=== PATIENT | male | born 1960 | race Caucasian/White ===

== ENCOUNTER → 2018-02-21 | Day surgery (SDC) | payer MEDICARE, MEDICAID ==
[~2018-02-21] MED LIST: ASPI-1159 PO; ATOR40TA70 PO; CARV6.2548 PO; CLOP75TA33 PO; FURO40TA5 PO; GLIM4TAB2 PO; LIDOCAINE HCL/PF 1% 10 MG/ML 5ML VIAL ONE; LINA5TAB PO; POTA10TA15 PO; SACU1TAB7 PO; SILV20CR13 TP
== END | disposition home or self-care (01) ==
LOC: RADANGIO 08:33
PROVIDERS: ATTEND Podiatrist Foot & Ankle Surgery
DX: M89.8X7 Other specified disorders of bone, ankle and foot (principal); I11.0 Hypertensive heart disease with heart failure; I50.9 Heart failure, unspecified; E11.9 Type 2 diabetes mellitus without complications; E78.5 Hyperlipidemia, unspecified; E44.0 Moderate protein-calorie malnutrition; Z79.4 Long term (current) use of insulin; Z95.1 Presence of aortocoronary bypass graft; Z95.810 Presence of automatic (implantable) cardiac defibrillator; Z86.73 Personal history of transient ischemic attack (TIA), and cerebral infarction without residual deficits; Z79.82 Long term (current) use of aspirin; Z79.899 Other long term (current) drug therapy
CPT/HCPCS: 36569; 76937; 77001; C1725; J3490

== ENCOUNTER 2018-05-28 12:26 | Emergency (ER) | payer MEDICARE, MEDICAID ==
[~2018-05-28] VITALS: Ht 182.9 cm; Wt 127.0 kg
[~2018-05-28 12:26] MED LIST changes: -LIDOCAINE HCL/PF 1% 10 MG/ML 5ML VIAL ONE
[2018-05-28 13:14] VITALS: BP 118/78
== END 2018-05-28 15:52 | disposition left against medical advice (07) ==
LOC: ER 12:26
DX: M79.671 Pain in right foot (principal); Z53.21 Procedure and treatment not carried out due to patient leaving prior to being seen by health care provider

== ENCOUNTER 2018-07-18 13:23 | Inpatient (IN) | payer MEDICARE, MEDICAID ==
[~2018-07-18] VITALS: Ht 182.9 cm; Wt 119.8 kg
[2018-07-18] MEDS ORDERED: PIPERACILLIN/TAZOBACTAM 3.375GM/50ML PREMIX IV ONE (18:45)
[2018-07-18] MEDS ORDERED: PIPERACILLIN/TAZ 3.375G PREMIX 50 ML IV NR (18:45)
[2018-07-18] MEDS ORDERED: VANCOMYCIN 1 G PREMIX 200 ML IV SCH (18:45)
[2018-07-18] MEDS ORDERED: MORPHINE SULFATE 4 MG/ML CPJ (NOT FOR IM USE) IV PRN (19:30)
[2018-07-18] MEDS ORDERED: LORAZEPAM 0.5MG TABLET PO PRN (19:30)
[2018-07-18] MEDS ORDERED: MAGNESIUM/ALUMINUM HYDROXIDE/SIMETHICONE 30ML UDC PO PRN (19:30)
[2018-07-18] MEDS ORDERED: DEXTROSE 50% WATER 50ML SYRINGE IV PRN (19:30)
[2018-07-18] MEDS ORDERED: DIPHENHYDRAMINE 50MG/ML VIAL IV PRN (19:30)
[2018-07-18] MEDS ORDERED: ONDANSETRON HCL 4MG/2ML INJ IV PRN (19:30)
[2018-07-18] MEDS ORDERED: CLONIDINE 0.1MG TABLET PO PRN (19:30)
[2018-07-18] MEDS ORDERED: ACETAMINOPHEN 325MG TABLET PO PRN (19:30)
[2018-07-18] MEDS ORDERED: HYDROCODONE/ACETAMINOPHEN 5/325MG TABLET PO PRN (19:30)
[2018-07-18] MEDS ORDERED: ACETAMINOPHEN 650MG SUPP PR PRN (19:30)
[2018-07-18] MEDS ORDERED: DOCUSATE SODIUM 100MG CAPSULE PO PRN (19:30)
[2018-07-18] MEDS ORDERED: IPRATROPIUM/ALBUTEROL 0.5-3(2.5)MG/3ML NEB INH PRN (19:30)
[2018-07-18] MEDS ORDERED: GUAIFENESIN 200MG/10ML SUGAR FREE UDC PO PRN (19:30)
[2018-07-18 19:36] LABS: BASOPHILS % 0.5 % (0.0-2.0); EOSINOPHILS % 0.8 % (0.0-5.0); HEMATOCRIT. 42.8 % (42.0-52.0); HEMOGLOBIN. 14.2 g/dL (14.0-18.0); LYMPHOCYTES % 13.1 % (20.0-50.0); MEAN CORPUSCULAR HEMOGLOBIN 29.9 pg (28.0-32.0); MEAN PLATELET VOLUME 9.4 fl (7.4-10.4); MONOCYTES % 10.8 % (2.0-8.0); NEUTROPHILS % 74.8 % (40.0-76.0); PLATELET 213 x1000/uL (130-400); RED BLOOD CELL COUNT 4.75 mill/uL (4.7-6.1); RED CELL DISTRIBUTION WIDTH 14.4 % (11.6-14.6)
[2018-07-18 19:41] LABS: CHLORIDE 100 mEq/L (98-107); INR 1.3; PROTHROMBIN TIME 12.6 sec (9.1-11.1)
[2018-07-18 22:04] LABS: CHLORIDE 101 mEq/L (98-107)
[2018-07-18] MEDS ORDERED: NA PHOS,M-B/NA PHOS,DI-BA ENEMA 118ML PR PRN (23:56)
[2018-07-19] VITALS (12 sets, daily range): BP systolic 101–140; BP diastolic 59–81
[2018-07-19] MEDS: PIPERACILLIN/TAZ 3.375G PREMIX 50 ML IV SCH ×4 (01:56→20:36)
[2018-07-19] MEDS ORDERED: VANCOMYCIN 1500MG in DEXTROSE 5% WATER 250ML IV SCH (03:00)
[2018-07-19 05:36] LABS: CLARITY URINE CLEAR (CLEAR); COLOR URINE DARK YELLOW (YELLOW); KETONES URINE 1+ (NEGATIVE); LEUKOCYTE ESTERASE URINE TRACE (NEGATIVE); NITRITE URINE NEGATIVE (NEGATIVE); OCCULT BLOOD URINE NEGATIVE (NEGATIVE); PROTEIN URINE 1+ (NEGATIVE)
[2018-07-19] MEDS: BLOOD SUGAR DIAGNOSTIC STRIP TEST SCH ×5 (06:09→20:41)
[2018-07-19 06:11] LABS: *AMPHETAMINES SCREEN URINE NEGATIVE (NEGATIVE); *BARBITURATES SCREEN URINE NEGATIVE (NEGATIVE); *BENZODIAZEPINES SCREEN URINE NEGATIVE (NEGATIVE)
[2018-07-19 06:12] LABS: *COCAINE SCREEN URINE NEGATIVE (NEGATIVE); CANNABINOID URINE SCREEN NEGATIVE (NEGATIVE); METHADONE URINE SCREEN NEGATIVE (NEGATIVE); OPIATES URINE SCREEN NEGATIVE (NEGATIVE)
[2018-07-19 06:13] LABS: PHENCYCLIDINE URINE SCREEN NEGATIVE (NEGATIVE)
[2018-07-19] MEDS ORDERED: INSULIN LISPRO 100 UNITS/ML SUBCUT SCH ×2 (06:30)
[2018-07-19 07:25] LABS: BASOPHILS % 0.6 % (0.0-2.0); EOSINOPHILS % 1.3 % (0.0-5.0); HEMATOCRIT. 40.2 % (42.0-52.0); HEMOGLOBIN. 13.5 g/dL (14.0-18.0); LYMPHOCYTES % 12.1 % (20.0-50.0); MEAN CORPUSCULAR VOLUME 89.7 fL (80.0-94.0); MEAN PLATELET VOLUME 9.2 fl (7.4-10.4); MONOCYTES % 10.8 % (2.0-8.0); NEUTROPHILS % 75.2 % (40.0-76.0); PLATELET 210 x1000/uL (130-400); RED BLOOD CELL COUNT 4.48 mill/uL (4.7-6.1); RED CELL DISTRIBUTION WIDTH 14.4 % (11.6-14.6)
[2018-07-19 08:02] LABS: CHLORIDE 102 mEq/L (98-107)
[2018-07-19 08:29] LABS: LDL CHOLESTEROL 119 mg/dL (5-100)
[2018-07-19 08:32] LABS: HDL CHOLESTEROL 35 mg/dL (40-59); T4 FREE 3.61 ng/dL (0.76-1.46)
[2018-07-19] MEDS: CLOPIDOGREL 75MG TABLET PO SCH (10:29)
[2018-07-19] MEDS: SODIUM CHLORIDE 0.45% 1,000 ML IV SCH ×2 (10:31→17:56)
[2018-07-19] MEDS ORDERED: ASPIRIN 81MG EC TABLET PO SCH (11:00)
[2018-07-19] MEDS: INSULIN LISPRO 100 UNITS/ML SUBCUT SCH ×3 (12:34→21:46)
[2018-07-19] MEDS ORDERED: ASPIRIN/SOD BICARB/CITRIC ACID 324MG TAB EFF ONE (12:36)
[2018-07-19] MEDS ORDERED: IODIXANOL 320MG/ML 100 ML BOTTLE IV ONE (12:38)
[2018-07-19] MEDS ORDERED: LIDOCAINE HCL 1% 20ML VIAL (Pyxis) INJ ONE ×2 (12:38→13:34)
[2018-07-19] MEDS ORDERED: HEPARIN SODIUM 1,000 UNIT/1ML VIAL IV ONE (13:02)
[2018-07-19] MEDS ORDERED: MIDAZOLAM HCL 2 MG/2 ML VIAL ONE ×2 (13:07→13:43)
[2018-07-19] MEDS ORDERED: FENTANYL CITRATE/PF 50MCG/ML 2ML VIAL ONE (13:07)
[2018-07-19] MEDS ORDERED: SODIUM BICARBONATE 4% (2.4MEQ) 5ML VIAL IV ONE (13:34)
[2018-07-19] MEDS ORDERED: IOHEXOL-300 100 ML BOTTLE ONE (13:34)
[2018-07-19] MEDS ORDERED: VANCOMYCIN 1,750 MG in DEXT 5% WATER 500 ML IV SCH (14:00)
[2018-07-19] MEDS ORDERED: CLOPIDOGREL 75MG TABLET ONE (14:13)
[2018-07-19] MEDS ORDERED: ACETAMINOPHEN 325MG TABLET PO PRN (14:30)
[2018-07-19] MEDS ORDERED: ONDANSETRON HCL 4MG/2ML INJ IV PRN (14:30)
[2018-07-19] MEDS ORDERED: ATROPINE SULFATE 1MG/10ML SYR IV PRN (14:30)
[2018-07-19] MEDS ORDERED: MORPHINE SULFATE 4 MG/ML CPJ (NOT FOR IM USE) IV PRN (14:30)
[2018-07-19] MEDS ORDERED: CLOPIDOGREL 75MG TABLET PO ONE (14:30)
[2018-07-19] MEDS ORDERED: PROTAMINE SULFATE 10MG/ML VIAL 5ML IV ONE ×2 (14:51→15:20)
[2018-07-19] MEDS: VANCOMYCIN 1 G PREMIX 200 ML IV SCH (17:55)
[2018-07-19] MEDS: ASPIRIN 81MG EC TABLET PO SCH (17:55)
[2018-07-19] MEDS ORDERED: PIPERACILLIN/TAZ 3.375G PREMIX 50 ML IV SCH (18:00)
[2018-07-19] MEDS: ATORVASTATIN CALCIUM 40MG TABLET PO SCH (20:35)
[2018-07-20] VITALS (12 sets, daily range): BP systolic 115–138; BP diastolic 54–87
[2018-07-20] MEDS: BLOOD SUGAR DIAGNOSTIC STRIP TEST SCH ×5 (00:26→21:00)
[2018-07-20] MEDS: VANCOMYCIN 1 G PREMIX 200 ML IV SCH ×4 (01:29→23:40)
[2018-07-20] MEDS: PIPERACILLIN/TAZ 3.375G PREMIX 50 ML IV SCH ×4 (03:13→21:17)
[2018-07-20] MEDS: INSULIN LISPRO 100 UNITS/ML SUBCUT SCH ×5 (04:00→21:15)
[2018-07-20] MEDS: SILVER SULFADIAZINE 1% CREAM 50GM TOP SCH (04:56)
[2018-07-20 06:59] LABS: BASOPHILS % 0.5 % (0.0-2.0); EOSINOPHILS % 2.2 % (0.0-5.0); HEMATOCRIT. 38.6 % (42.0-52.0); HEMOGLOBIN. 12.8 g/dL (14.0-18.0); LYMPHOCYTES % 12.6 % (20.0-50.0); MEAN CORPUSCULAR HEMOGLOBIN 29.6 pg (28.0-32.0); MEAN CORPUSCULAR VOLUME 89.2 fL (80.0-94.0); MEAN PLATELET VOLUME 8.7 fl (7.4-10.4); MONOCYTES % 9.3 % (2.0-8.0); NEUTROPHILS % 75.4 % (40.0-76.0); PLATELET 224 x1000/uL (130-400); RED BLOOD CELL COUNT 4.32 mill/uL (4.7-6.1)
[2018-07-20 07:15] LABS: CHLORIDE 102 mEq/L (98-107)
[2018-07-20] MEDS ORDERED: DEXAMETHASONE 4MG/ML 1ML VIAL ONE (07:41)
[2018-07-20] MEDS ORDERED: LIDOCAINE HCL 1% 20ML VIAL (Pyxis) INJ ONE ×2 (07:41→12:18)
[2018-07-20] MEDS ORDERED: BUPIVACAINE HCL/PF 0.5% (5MG/ML) 10ML ONE (07:42)
[2018-07-20] MEDS ORDERED: GENTAMICIN SULF 40MG/ML 2ML VIAL ONE (07:42)
[2018-07-20] MEDS ORDERED: BACITRACIN 50,000 UNITS/VIAL ONE (07:42)
[2018-07-20] MEDS ORDERED: DIPHENHYDRAMINE 50MG/ML VIAL ONE (08:18)
[2018-07-20] MEDS ORDERED: MIDAZOLAM HCL 2 MG/2 ML VIAL ONE (08:18)
[2018-07-20] MEDS ORDERED: FENTANYL CITRATE/PF 50MCG/ML 2ML VIAL ONE (08:18)
[2018-07-20] MEDS ORDERED: CLOPIDOGREL 75MG TABLET PO SCH (09:00)
[2018-07-20] MEDS ORDERED: POTASSIUM CHLORIDE 20MEQ TABLET SR PO NR (10:30)
[2018-07-20] MEDS: CLOPIDOGREL 75MG TABLET PO SCH (11:21)
[2018-07-20] MEDS: ASPIRIN 81MG EC TABLET PO SCH ×2 (11:22→16:17)
[2018-07-20] MEDS ORDERED: INSULIN GLARGINE UD 100 UNITS/ML SYR SUBCUT NR (11:30)
[2018-07-20] MEDS: ATORVASTATIN CALCIUM 40MG TABLET PO SCH (21:09)
[2018-07-20] MEDS: INSULIN GLARGINE UD 100 UNITS/ML SYR SUBCUT SCH (23:34)
[2018-07-21] VITALS (12 sets, daily range): BP systolic 101–126; BP diastolic 57–83
[2018-07-21] MEDS: PIPERACILLIN/TAZ 3.375G PREMIX 50 ML IV SCH ×4 (05:10→20:59)
[2018-07-21] MEDS: BLOOD SUGAR DIAGNOSTIC STRIP TEST SCH ×4 (06:50→21:00)
[2018-07-21] MEDS: VANCOMYCIN 1 G PREMIX 200 ML IV SCH ×3 (07:00→23:35)
[2018-07-21] MEDS: INSULIN LISPRO 100 UNITS/ML SUBCUT SCH ×4 (08:23→21:20)
[2018-07-21 08:25] LABS: HEMATOCRIT 39.4 % (42.0-52.0); MEAN CORPUSCULAR HEMOGLOBIN 29.6 pg (28.0-32.0); MEAN CORPUSCULAR VOLUME 90.2 fL (80.0-94.0); PLATELET 240 x1000/uL (130-400); RED BLOOD CELL COUNT 4.37 mill/uL (4.7-6.1)
[2018-07-21] MEDS: ASPIRIN 81MG EC TABLET PO SCH ×2 (08:29→17:52)
[2018-07-21] MEDS: SILVER SULFADIAZINE 1% CREAM 50GM TOP SCH (08:29)
[2018-07-21] MEDS: CLOPIDOGREL 75MG TABLET PO SCH (08:29)
[2018-07-21 08:43] LABS: CHLORIDE 104 mEq/L (98-107)
[2018-07-21] MEDS: INSULIN GLARGINE UD 100 UNITS/ML SYR SUBCUT SCH ×2 (09:42→21:21)
[2018-07-21] MEDS: ATORVASTATIN CALCIUM 40MG TABLET PO SCH (21:17)
[2018-07-22] VITALS (13 sets, daily range): BP systolic 106–145; BP diastolic 55–83
[2018-07-22] MEDS: PIPERACILLIN/TAZ 3.375G PREMIX 50 ML IV SCH ×5 (02:05→19:55)
[2018-07-22] MEDS: VANCOMYCIN 1 G PREMIX 200 ML IV SCH ×3 (06:44→22:48)
[2018-07-22] MEDS: BLOOD SUGAR DIAGNOSTIC STRIP TEST SCH ×4 (06:50→21:00)
[2018-07-22 07:06] LABS: HEMATOCRIT 37.9 % (42.0-52.0); HEMOGLOBIN 12.7 g/dL (14.0-18.0); MEAN CORPUSCULAR HEMOGLOBIN 29.7 pg (28.0-32.0); MEAN CORPUSCULAR VOLUME 88.7 fL (80.0-94.0); PLATELET 234 x1000/uL (130-400); RED BLOOD CELL COUNT 4.27 mill/uL (4.7-6.1); RED CELL DISTRIBUTION WIDTH 14.1 % (11.6-14.6)
[2018-07-22 07:43] LABS: CHLORIDE 106 mEq/L (98-107)
[2018-07-22] MEDS: INSULIN LISPRO 100 UNITS/ML SUBCUT SCH ×4 (08:03→21:22)
[2018-07-22] MEDS: CLOPIDOGREL 75MG TABLET PO SCH (08:03)
[2018-07-22] MEDS: ASPIRIN 81MG EC TABLET PO SCH ×2 (08:03→17:54)
[2018-07-22] MEDS: SILVER SULFADIAZINE 1% CREAM 50GM TOP SCH (08:04)
[2018-07-22] MEDS: INSULIN GLARGINE UD 100 UNITS/ML SYR SUBCUT SCH ×2 (10:51→21:23)
[2018-07-22] MEDS: LOSARTAN POTASSIUM 50 MG TABLET PO SCH (10:52)
[2018-07-22] MEDS: CARVEDILOL 6.25 MG TABLET PO SCH (21:21)
[2018-07-22] MEDS: ATORVASTATIN CALCIUM 40MG TABLET PO SCH (21:21)
[2018-07-23] MEDS: PIPERACILLIN/TAZ 3.375G PREMIX 50 ML IV SCH ×3 (01:26→13:15)
[2018-07-23 04:00] VITALS: BP 115/73
[2018-07-23] MEDS: BLOOD SUGAR DIAGNOSTIC STRIP TEST SCH ×3 (05:25→17:45)
[2018-07-23] MEDS: INSULIN LISPRO 100 UNITS/ML SUBCUT SCH ×3 (05:45→18:24)
[2018-07-23] MEDS: VANCOMYCIN 1 G PREMIX 200 ML IV SCH ×2 (06:21→15:49)
[2018-07-23 08:00] VITALS: BP 117/77
[2018-07-23] MEDS: ASPIRIN 81MG EC TABLET PO SCH ×2 (09:53→18:25)
[2018-07-23] MEDS: CLOPIDOGREL 75MG TABLET PO SCH (09:53)
[2018-07-23] MEDS: LOSARTAN POTASSIUM 50 MG TABLET PO SCH (09:53)
[2018-07-23] MEDS: SILVER SULFADIAZINE 1% CREAM 50GM TOP SCH (09:54)
[2018-07-23] MEDS: CARVEDILOL 6.25 MG TABLET PO SCH (09:54)
[2018-07-23] MEDS: INSULIN GLARGINE UD 100 UNITS/ML SYR SUBCUT SCH (10:00)
[2018-07-23 12:00] VITALS: BP 114/75
[2018-07-23 16:00] VITALS: BP 113/71
[2018-07-23 17:29] VITALS: BP 113/71
[2018-07-23 17:43] LABS: HEMATOCRIT 37.6 % (42.0-52.0); HEMOGLOBIN 12.4 g/dL (14.0-18.0); MEAN CORPUSCULAR HEMOGLOBIN 29.6 pg (28.0-32.0); MEAN CORPUSCULAR VOLUME 89.3 fL (80.0-94.0); PLATELET 246 x1000/uL (130-400); RED BLOOD CELL COUNT 4.21 mill/uL (4.7-6.1)
[2018-07-23 17:50] LABS: CHLORIDE 104 mEq/L (98-107)
[2018-07-23 20:00] VITALS: BP 142/89
== END 2018-07-23 19:20 | disposition home health service (06) | DRG 853 ==
LOC: ER 13:23 → SUPCPDRO 19:43 → 5WST 19:53 → EDBEDREQ 20:02 → EDBEDREQTM 20:02 → EDBEDREQSVC 20:02 → ENRESERV 23:08 → 3WST 07-19 16:00 → 8WST 07-22 23:12
PROVIDERS: ADMIT Internal Medicine; ATTEND Internal Medicine
PROC: B41F1ZZ Fluoroscopy of Right Lower Extremity Arteries using Low Osmolar Contrast (ICD-10-PCS; 2018-07-19)
PROC: 047T34Z Dilation of Right Peroneal Artery with Drug-eluting Intraluminal Device, Percutaneous Approach (ICD-10-PCS; 2018-07-19)
PROC: 047M34Z Dilation of Right Popliteal Artery with Drug-eluting Intraluminal Device, Percutaneous Approach (ICD-10-PCS; 2018-07-19)
PROC: 0Y6M0ZF Detachment at Right Foot, Partial 5th Ray, Open Approach (ICD-10-PCS; principal; 2018-07-20)
PROC: 02HV33Z Insertion of Infusion Device into Superior Vena Cava, Percutaneous Approach (ICD-10-PCS; 2018-07-20)
PROC: B5181ZA Fluoroscopy of Superior Vena Cava using Low Osmolar Contrast, Guidance (ICD-10-PCS; 2018-07-20)
PROC: B548ZZA Ultrasonography of Superior Vena Cava, Guidance (ICD-10-PCS; 2018-07-20)
DX: A41.9 Sepsis, unspecified organism (principal); A48.0 Gas gangrene; I50.43 Acute on chronic combined systolic (congestive) and diastolic (congestive) heart failure; L03.115 Cellulitis of right lower limb; D68.59 Other primary thrombophilia; E11.52 Type 2 diabetes mellitus with diabetic peripheral angiopathy with gangrene; I42.0 Dilated cardiomyopathy; N39.0 Urinary tract infection, site not specified; I47.2 Ventricular tachycardia; M86.9 Osteomyelitis, unspecified; E66.2 Morbid (severe) obesity with alveolar hypoventilation; E11.621 Type 2 diabetes mellitus with foot ulcer; I11.0 Hypertensive heart disease with heart failure; E78.5 Hyperlipidemia, unspecified; I25.5 Ischemic cardiomyopathy; E11.65 Type 2 diabetes mellitus with hyperglycemia; E11.42 Type 2 diabetes mellitus with diabetic polyneuropathy; E11.51 Type 2 diabetes mellitus with diabetic peripheral angiopathy without gangrene; E11.610 Type 2 diabetes mellitus with diabetic neuropathic arthropathy; L97.513 Non-pressure chronic ulcer of other part of right foot with necrosis of muscle; E11.69 Type 2 diabetes mellitus with other specified complication; E78.00 Pure hypercholesterolemia, unspecified; E87.6 Hypokalemia; I25.10 Atherosclerotic heart disease of native coronary artery without angina pectoris; B95.2 Enterococcus as the cause of diseases classified elsewhere; I27.20 Pulmonary hypertension, unspecified; Z79.4 Long term (current) use of insulin; Z89.421 Acquired absence of other right toe(s); Z91.5 Personal history of self-harm; Z95.810 Presence of automatic (implantable) cardiac defibrillator; I25.2 Old myocardial infarction; I69.320 Aphasia following cerebral infarction; Z91.19 Patient's noncompliance with other medical treatment and regimen; Z95.1 Presence of aortocoronary bypass graft; Z68.35 Body mass index [BMI] 35.0-35.9, adult
CPT/HCPCS: 36415; 36569; 37230; 37234; 71045; 73630; 73700; 75710; 76937; 77001; 80048; 80061; 80202; 80305; 82962; 83036; 83735; 84132; 84439; 84443; 85027; 85347; 85651; 86140; 86850; 86900; 87070; 87075; 87077; 87186; 93005; 93306; 93923; 96374; 97162; 99291; C1725; C1726; C1760; C1769; C1874; C1893; C1894; J1100; J1200; J1580; J1644; J1815; J2250; J2543; J2720; J3010; J3370; J3490; J7040; J7050; J7060; Q9967

== ENCOUNTER 2018-12-09 08:36 | Inpatient (IN) | payer MEDICAID, MEDICARE ==
[~2018-12-09] VITALS: Ht 182.9 cm; Wt 135.9 kg
[~2018-12-09 08:36] MED LIST changes: -ASPI-1159 PO; +ASPI-1393 PO; -GLIM4TAB2 PO
[2018-12-09] MEDS ORDERED: PIPERACILLIN/TAZ 3.375G PREMIX 50 ML IV ONE (10:15)
[2018-12-09] MEDS ORDERED: VANCOMYCIN 1 G PREMIX 200 ML IV ONE (10:15)
[2018-12-09 10:24] LABS: BASOPHILS % 1.2 % (0.0-2.0); EOSINOPHILS % 2.1 % (0.0-5.0); HEMATOCRIT. 46.3 % (42.0-52.0); HEMOGLOBIN. 15.1 g/dL (14.0-18.0); MEAN CORPUSCULAR HEMOGLOBIN 30.3 pg (28.0-32.0); MEAN CORPUSCULAR VOLUME 92.9 fL (80.0-94.0); MEAN PLATELET VOLUME 9.4 fl (7.4-10.4); NEUTROPHILS % 67.7 % (40.0-76.0); PLATELET 181 x1000/uL (130-400); RED BLOOD CELL COUNT 4.98 mill/uL (4.7-6.1); RED CELL DISTRIBUTION WIDTH 15.5 % (11.6-14.6)
[2018-12-09 10:27] LABS: CHLORIDE 100 mEq/L (98-107)
[2018-12-09 10:28] LABS: INR 1.3; PROTHROMBIN TIME 13.5 sec (9.6-11.0)
[2018-12-09 13:06] LABS: CLARITY URINE CLEAR (CLEAR); COLOR URINE DARK YELLOW (YELLOW); KETONES URINE 1+ (NEGATIVE); LEUKOCYTE ESTERASE URINE NEGATIVE (NEGATIVE); NITRITE URINE NEGATIVE (NEGATIVE); OCCULT BLOOD URINE TRACE (NEGATIVE); PH URINE 5.5 (4.5-8.0); PROTEIN URINE 3+ (NEGATIVE); SPECIFIC GRAVITY URINE 1.041 (1.005-1.030)
[2018-12-09 16:00] VITALS: BP 157/107
[2018-12-09] MEDS ORDERED: CLONIDINE 0.2MG TABLET PO PRN (16:45)
[2018-12-09] MEDS ORDERED: IPRATROPIUM/ALBUTEROL 0.5-3(2.5)MG/3ML NEB INH PRN (16:45)
[2018-12-09] MEDS ORDERED: ONDANSETRON HCL 4MG/2ML INJ IV PRN (16:45)
[2018-12-09] MEDS ORDERED: ACETAMINOPHEN 650MG/20.3ML UDC GT PRN (16:45)
[2018-12-09] MEDS ORDERED: HYDROCODONE/ACETAMINOPHEN 5/325MG TABLET PO PRN (16:45)
[2018-12-09] MEDS ORDERED: CLONIDINE 0.1MG TABLET PO PRN ×2 (16:45)
[2018-12-09] MEDS ORDERED: DEXTROSE 50% WATER 50ML SYRINGE IV PRN (17:30)
[2018-12-09 17:31] VITALS: BP 157/107
[2018-12-09] MEDS: CLOPIDOGREL 75MG TABLET PO SCH (18:08)
[2018-12-09] MEDS: AMLODIPINE 2.5MG TABLET PO SCH (18:09)
[2018-12-09] MEDS: INSULIN LISPRO 100 UNITS/ML SUBCUT SCH ×2 (18:10→21:26)
[2018-12-09] MEDS: ASPIRIN 81MG EC TABLET PO SCH (18:11)
[2018-12-09] MEDS: ENOXAPARIN 30MG/0.3ML SYR SUBCUT SCH (18:11)
[2018-12-09 20:00] VITALS: BP 131/89
[2018-12-09] MEDS ORDERED: VANCOMYCIN 1 G PREMIX 200 ML IV SCH (20:00)
[2018-12-09] MEDS: ATORVASTATIN CALCIUM 40MG TABLET PO SCH (20:31)
[2018-12-09] MEDS: CEFEPIME 1,000 MG in DEXTROSE 5% WATER 50 ML IV SCH (20:31)
[2018-12-09] MEDS: CARVEDILOL 6.25 MG TABLET PO SCH (20:32)
[2018-12-09] MEDS ORDERED: INSULIN LISPRO 100 UNITS/ML SUBCUT SCH (21:00)
[2018-12-09] MEDS ORDERED: CEFEPIME HCL 1000MG/VIAL INJ IM SCH (21:00)
[2018-12-09] MEDS: VANCOMYCIN 1 G PREMIX 200 ML IV SCH (21:10)
[2018-12-09] MEDS: BLOOD SUGAR DIAGNOSTIC STRIP TEST SCH (21:22)
[2018-12-09] MEDS: INSULIN GLARGINE UD 100 UNITS/ML SYR SUBCUT SCH (21:26)
[2018-12-10] VITALS: BP 116/76
[2018-12-10 04:00] VITALS: BP 125/91
[2018-12-10] MEDS: VANCOMYCIN 1 G PREMIX 200 ML IV SCH ×3 (04:19→22:09)
[2018-12-10] MEDS: BLOOD SUGAR DIAGNOSTIC STRIP TEST SCH ×4 (06:54→21:16)
[2018-12-10] MEDS: INSULIN LISPRO 100 UNITS/ML SUBCUT SCH ×4 (06:54→22:18)
[2018-12-10] MEDS: CEFEPIME 1,000 MG in DEXTROSE 5% WATER 50 ML IV SCH ×2 (06:54→17:20)
[2018-12-10] MEDS: ENOXAPARIN 30MG/0.3ML SYR SUBCUT SCH ×2 (06:54→17:20)
[2018-12-10 07:02] LABS: EOSINOPHILS % 4.4 % (0.0-5.0); HEMATOCRIT. 41.6 % (42.0-52.0); HEMOGLOBIN. 13.9 g/dL (14.0-18.0); LYMPHOCYTES % 22.3 % (20.0-50.0); MEAN CORPUSCULAR HEMOGLOBIN 30.7 pg (28.0-32.0); MEAN CORPUSCULAR VOLUME 91.8 fL (80.0-94.0); MONOCYTES % 10.3 % (2.0-8.0); PLATELET 176 x1000/uL (130-400); RED BLOOD CELL COUNT 4.54 mill/uL (4.7-6.1); RED CELL DISTRIBUTION WIDTH 15.8 % (11.6-14.6)
[2018-12-10 08:00] VITALS: BP 127/83
[2018-12-10 08:15] LABS: CHLORIDE 104 mEq/L (98-107)
[2018-12-10 08:29] LABS: HDL CHOLESTEROL 38 mg/dL (40-59); T4 FREE 3.01 ng/dL (0.76-1.46)
[2018-12-10 08:34] LABS: LDL CHOLESTEROL 92 mg/dL (5-100)
[2018-12-10] MEDS: AMLODIPINE 2.5MG TABLET PO SCH ×2 (08:49→17:00)
[2018-12-10] MEDS: ASPIRIN 81MG EC TABLET PO SCH (08:53)
[2018-12-10] MEDS: CLOPIDOGREL 75MG TABLET PO SCH (08:53)
[2018-12-10] MEDS: CARVEDILOL 6.25 MG TABLET PO SCH (08:55)
[2018-12-10] MEDS ORDERED: POTASSIUM CHLORIDE 20MEQ TABLET SR PO NR (10:30)
[2018-12-10] MEDS: NITROGLYCERIN OINT 1GM/INCH UDPKT TD SCH ×3 (11:50→19:02)
[2018-12-10 12:00] VITALS: BP 119/76
[2018-12-10 16:00] VITALS: BP_SYST 120; BP_DIAS 78; BP_DIAS 82
[2018-12-10 20:45] VITALS: BP 118/79
[2018-12-10] MEDS: ATORVASTATIN CALCIUM 40MG TABLET PO SCH (22:09)
[2018-12-10] MEDS: INSULIN GLARGINE UD 100 UNITS/ML SYR SUBCUT SCH (23:35)
[2018-12-11] VITALS: BP 125/84
[2018-12-11] MEDS: NITROGLYCERIN OINT 1GM/INCH UDPKT TD SCH ×3 (00:19→17:50)
[2018-12-11 04:00] VITALS: BP 124/82
[2018-12-11] MEDS: VANCOMYCIN 1 G PREMIX 200 ML IV SCH ×2 (04:04→17:51)
[2018-12-11] MEDS: CEFEPIME 1,000 MG in DEXTROSE 5% WATER 50 ML IV SCH ×2 (05:50→17:51)
[2018-12-11] MEDS: ENOXAPARIN 30MG/0.3ML SYR SUBCUT SCH ×2 (05:51→17:51)
[2018-12-11] MEDS: BLOOD SUGAR DIAGNOSTIC STRIP TEST SCH ×4 (06:14→21:00)
[2018-12-11] MEDS: INSULIN LISPRO 100 UNITS/ML SUBCUT SCH ×4 (06:28→22:55)
[2018-12-11 06:56] LABS: BASOPHILS % 0.4 % (0.0-2.0); EOSINOPHILS % 4.3 % (0.0-5.0); HEMOGLOBIN. 14.2 g/dL (14.0-18.0); LYMPHOCYTES % 24.6 % (20.0-50.0); MEAN CORPUSCULAR HEMOGLOBIN 30.8 pg (28.0-32.0); MEAN CORPUSCULAR VOLUME 91.3 fL (80.0-94.0); MEAN PLATELET VOLUME 9.3 fl (7.4-10.4); MONOCYTES % 9.9 % (2.0-8.0); NEUTROPHILS % 60.8 % (40.0-76.0); PLATELET 199 x1000/uL (130-400); RED CELL DISTRIBUTION WIDTH 15.6 % (11.6-14.6)
[2018-12-11 07:09] LABS: CHLORIDE 103 mEq/L (98-107)
[2018-12-11 08:00] VITALS: BP 125/80
[2018-12-11] MEDS: AMLODIPINE 2.5MG TABLET PO SCH ×2 (09:00→17:50)
[2018-12-11] MEDS: ASPIRIN 81MG EC TABLET PO SCH (09:17)
[2018-12-11] MEDS: CLOPIDOGREL 75MG TABLET PO SCH (09:17)
[2018-12-11] MEDS ORDERED: FUROSEMIDE 40MG/4ML VIAL IVP NR (11:30)
[2018-12-11 12:00] VITALS: BP 130/88
[2018-12-11] MEDS ORDERED: POTASSIUM CHLORIDE 20MEQ TABLET SR PO SCH (12:00)
[2018-12-11 16:00] VITALS: BP 130/92
[2018-12-11 20:00] VITALS: BP 123/91
[2018-12-11] MEDS: ATORVASTATIN CALCIUM 40MG TABLET PO SCH (22:51)
[2018-12-11] MEDS: INSULIN GLARGINE UD 100 UNITS/ML SYR SUBCUT SCH (22:55)
[2018-12-12] VITALS (9 sets, daily range): BP systolic 125–144; BP diastolic 86–98
[2018-12-12 05:27] LABS: BASOPHILS % 0.9 % (0.0-2.0); EOSINOPHILS % 5.1 % (0.0-5.0); HEMATOCRIT. 43.5 % (42.0-52.0); HEMOGLOBIN. 14.5 g/dL (14.0-18.0); LYMPHOCYTES % 24.7 % (20.0-50.0); MEAN CORPUSCULAR HEMOGLOBIN 30.4 pg (28.0-32.0); MEAN CORPUSCULAR VOLUME 91.5 fL (80.0-94.0); MONOCYTES % 14.4 % (2.0-8.0); NEUTROPHILS % 54.9 % (40.0-76.0); PLATELET 212 x1000/uL (130-400); RED BLOOD CELL COUNT 4.76 mill/uL (4.7-6.1); RED CELL DISTRIBUTION WIDTH 15.6 % (11.6-14.6)
[2018-12-12 05:31] LABS: CHLORIDE 105 mEq/L (98-107)
[2018-12-12] MEDS: NITROGLYCERIN OINT 1GM/INCH UDPKT TD SCH ×4 (05:48→16:57)
[2018-12-12] MEDS: INSULIN LISPRO 100 UNITS/ML SUBCUT SCH ×4 (06:03→22:12)
[2018-12-12] MEDS: BLOOD SUGAR DIAGNOSTIC STRIP TEST SCH ×4 (06:03→22:12)
[2018-12-12] MEDS: CEFEPIME 1,000 MG in DEXTROSE 5% WATER 50 ML IV SCH ×2 (06:04→17:11)
[2018-12-12] MEDS: ENOXAPARIN 30MG/0.3ML SYR SUBCUT SCH ×2 (06:11→17:29)
[2018-12-12] MEDS: VANCOMYCIN 1 G PREMIX 200 ML IV SCH ×2 (06:11→18:11)
[2018-12-12] MEDS: CLOPIDOGREL 75MG TABLET PO SCH (08:29)
[2018-12-12] MEDS: AMLODIPINE 2.5MG TABLET PO SCH ×2 (08:29→22:09)
[2018-12-12] MEDS: ASPIRIN 81MG EC TABLET PO SCH (08:29)
[2018-12-12] MEDS ORDERED: POTASSIUM CHLORIDE INJ 40 MEQ in DEXT 5% WATER 250 ML IV NR (10:15)
[2018-12-12] MEDS ORDERED: SODIUM BICARBONATE 4% (2.4MEQ) 5ML VIAL IV ONE (12:57)
[2018-12-12] MEDS ORDERED: LIDOCAINE HCL 1% 20ML VIAL (Pyxis) INJ ONE ×2 (12:58→14:21)
[2018-12-12] MEDS ORDERED: HEPARIN SODIUM 1,000 UNIT/1ML VIAL IV ONE (13:24)
[2018-12-12] MEDS ORDERED: IODIXANOL 320MG/ML 100 ML BOTTLE IV ONE (14:21)
[2018-12-12] MEDS ORDERED: FENTANYL CITRATE/PF 50MCG/ML 2ML VIAL ONE (14:37)
[2018-12-12] MEDS ORDERED: MIDAZOLAM HCL 2 MG/2 ML VIAL ONE ×2 (14:37→15:03)
[2018-12-12] MEDS ORDERED: IOHEXOL-300 100 ML BOTTLE ONE (14:59)
[2018-12-12] MEDS ORDERED: CLOPIDOGREL 75MG TABLET ONE (15:40)
[2018-12-12] MEDS ORDERED: ASPIRIN 325MG EC TABLET PO ONE (15:40)
[2018-12-12] MEDS ORDERED: ATROPINE SULFATE 1MG/10ML SYR IV PRN (16:00)
[2018-12-12] MEDS ORDERED: ACETAMINOPHEN 325MG TABLET PO PRN (16:00)
[2018-12-12] MEDS ORDERED: CLONIDINE 0.1MG TABLET PO PRN (18:30)
[2018-12-12] MEDS: ATORVASTATIN CALCIUM 40MG TABLET PO SCH (22:09)
[2018-12-12] MEDS: INSULIN GLARGINE UD 100 UNITS/ML SYR SUBCUT SCH (22:27)
[2018-12-13] VITALS (12 sets, daily range): BP systolic 125–144; BP diastolic 70–103
[2018-12-13] MEDS: NITROGLYCERIN OINT 1GM/INCH UDPKT TD SCH ×4 (00:02→17:38)
[2018-12-13] MEDS: CEFEPIME 1,000 MG in DEXTROSE 5% WATER 50 ML IV SCH ×2 (05:12→17:40)
[2018-12-13 06:22] LABS: BASOPHILS % 0.9 % (0.0-2.0); EOSINOPHILS % 3.4 % (0.0-5.0); HEMATOCRIT. 41.1 % (42.0-52.0); HEMOGLOBIN. 13.9 g/dL (14.0-18.0); LYMPHOCYTES % 19.3 % (20.0-50.0); MEAN CORPUSCULAR HEMOGLOBIN 31.1 pg (28.0-32.0); MEAN CORPUSCULAR VOLUME 91.6 fL (80.0-94.0); MEAN PLATELET VOLUME 8.6 fl (7.4-10.4); MONOCYTES % 11.4 % (2.0-8.0); PLATELET 188 x1000/uL (130-400); RED BLOOD CELL COUNT 4.49 mill/uL (4.7-6.1); RED CELL DISTRIBUTION WIDTH 15.5 % (11.6-14.6)
[2018-12-13 06:45] LABS: CHLORIDE 105 mEq/L (98-107)
[2018-12-13] MEDS: BLOOD SUGAR DIAGNOSTIC STRIP TEST SCH ×4 (06:45→21:04)
[2018-12-13] MEDS: VANCOMYCIN 1 G PREMIX 200 ML IV SCH ×2 (06:45→18:34)
[2018-12-13] MEDS: INSULIN LISPRO 100 UNITS/ML SUBCUT SCH ×4 (07:16→21:00)
[2018-12-13] MEDS: ASPIRIN 81MG EC TABLET PO SCH (08:14)
[2018-12-13] MEDS: CLOPIDOGREL 75MG TABLET PO SCH (08:14)
[2018-12-13] MEDS: AMLODIPINE 2.5MG TABLET PO SCH ×2 (08:15→21:00)
[2018-12-13] MEDS: ENOXAPARIN 30MG/0.3ML SYR SUBCUT SCH (09:30)
[2018-12-13] MEDS ORDERED: DOCUSATE SODIUM 250MG CAPSULE PO SCH (11:00)
[2018-12-13] MEDS ORDERED: LACTULOSE 20G/30ML UDC PO PRN (11:00)
[2018-12-13] MEDS: ATORVASTATIN CALCIUM 40MG TABLET PO SCH (21:04)
[2018-12-13] MEDS: INSULIN GLARGINE UD 100 UNITS/ML SYR SUBCUT SCH (21:05)
== END 2018-12-13 21:15 | DRG 252 ==
LOC: ER 08:36 → 5WST 11:40 → EDBEDREQ 11:42 → ENRESERV 15:32 → 8WST 12-10 20:17 → 3WST 12-12 16:00
PROVIDERS: ADMIT Internal Medicine; ATTEND Internal Medicine
PROC: 047N35Z Dilation of Left Popliteal Artery with Two Drug-eluting Intraluminal Devices, Percutaneous Approach (ICD-10-PCS; principal; 2018-12-12)
PROC: B41GYZZ Fluoroscopy of Left Lower Extremity Arteries using Other Contrast (ICD-10-PCS; 2018-12-12)
PROC: 02HV33Z Insertion of Infusion Device into Superior Vena Cava, Percutaneous Approach (ICD-10-PCS; 2018-12-12)
PROC: B518ZZA Fluoroscopy of Superior Vena Cava, Guidance (ICD-10-PCS; 2018-12-12)
PROC: B548ZZA Ultrasonography of Superior Vena Cava, Guidance (ICD-10-PCS; 2018-12-12)
DX: I70.244 Atherosclerosis of native arteries of left leg with ulceration of heel and midfoot (principal); I50.43 Acute on chronic combined systolic (congestive) and diastolic (congestive) heart failure; M86.672 Other chronic osteomyelitis, left ankle and foot; I42.9 Cardiomyopathy, unspecified; E44.1 Mild protein-calorie malnutrition; D68.59 Other primary thrombophilia; Z68.41 Body mass index [BMI] 40.0-44.9, adult; E66.2 Morbid (severe) obesity with alveolar hypoventilation; L97.429 Non-pressure chronic ulcer of left heel and midfoot with unspecified severity; B96.5 Pseudomonas (aeruginosa) (mallei) (pseudomallei) as the cause of diseases classified elsewhere; E11.610 Type 2 diabetes mellitus with diabetic neuropathic arthropathy; I27.20 Pulmonary hypertension, unspecified; E78.00 Pure hypercholesterolemia, unspecified; E87.6 Hypokalemia; E11.69 Type 2 diabetes mellitus with other specified complication; E11.621 Type 2 diabetes mellitus with foot ulcer; E11.65 Type 2 diabetes mellitus with hyperglycemia; R00.1 Bradycardia, unspecified; I11.0 Hypertensive heart disease with heart failure; I50.9 Heart failure, unspecified; I25.10 Atherosclerotic heart disease of native coronary artery without angina pectoris; G80.9 Cerebral palsy, unspecified; I89.0 Lymphedema, not elsewhere classified; E78.5 Hyperlipidemia, unspecified; E11.40 Type 2 diabetes mellitus with diabetic neuropathy, unspecified; E11.51 Type 2 diabetes mellitus with diabetic peripheral angiopathy without gangrene; Z95.810 Presence of automatic (implantable) cardiac defibrillator; Z95.1 Presence of aortocoronary bypass graft; Z86.73 Personal history of transient ischemic attack (TIA), and cerebral infarction without residual deficits; Z91.19 Patient's noncompliance with other medical treatment and regimen; Z71.3 Dietary counseling and surveillance; Z79.899 Other long term (current) drug therapy; Z79.82 Long term (current) use of aspirin; Z79.02 Long term (current) use of antithrombotics/antiplatelets; Z89.421 Acquired absence of other right toe(s)
CPT/HCPCS: 36415; 36569; 36573; 37224; 37230; 71045; 73620; 74018; 75710; 80048; 80061; 80202; 82962; 83036; 83735; 84439; 84443; 84484; 85347; 85379; 87070; 87077; 87186; 93005; 93923; 93970; 96374; 96375; 99285; C1725; C1760; C1769; C1874; C1887; C1893; C1894; J0692; J1644; J1650; J1815; J1940; J2250; J2543; J3010; J3370; J3480; J3490; J7050; J7060; Q9967

== ENCOUNTER 2019-02-15 12:58 | Inpatient (IN) | payer MEDICARE ==
[~2019-02-15] VITALS: Ht 182.9 cm; Wt 133.4 kg
[~2019-02-15 12:58] MED LIST changes: -CLOP75TA33 PO; -LINA5TAB PO; -POTA10TA15 PO; -SACU1TAB7 PO; -SILV20CR13 TP
[2019-02-15] MEDS ORDERED: SODIUM CHLORIDE 0.9% 1000ML BAG (SEPSIS BOLUS) IV ONE (13:30)
[2019-02-15] MEDS ORDERED: PIPERACILLIN/TAZ 3.375G PREMIX 50 ML IV ONE (13:30)
[2019-02-15] MEDS ORDERED: VANCOMYCIN 1 G PREMIX 200 ML IV ONE (13:30)
[2019-02-15 14:31] LABS: BASOPHILS % 0.9 % (0.0-2.0); EOSINOPHILS % 1.9 % (0.0-5.0); HEMOGLOBIN. 11.8 g/dL (14.0-18.0); MEAN CORPUSCULAR HEMOGLOBIN 30.8 pg (28.0-32.0); MEAN CORPUSCULAR VOLUME 91.3 fL (80.0-94.0); NEUTROPHILS % 71.2 % (40.0-76.0); RED BLOOD CELL COUNT 3.84 mill/uL (4.7-6.1); RED CELL DISTRIBUTION WIDTH 16.6 % (11.6-14.6)
[2019-02-15 14:38] LABS: CHLORIDE 105 mEq/L (98-107); INR 1.4; PROTHROMBIN TIME 14.4 sec (9.6-11.0)
[2019-02-15] MEDS ORDERED: NA PHOS,M-B/NA PHOS,DI-BA ENEMA 118ML PR PRN (18:00)
[2019-02-15] MEDS ORDERED: GUAIFENESIN 200MG/10ML SUGAR FREE UDC PO PRN (18:00)
[2019-02-15] MEDS ORDERED: LORAZEPAM 0.5MG TABLET PO PRN (18:00)
[2019-02-15] MEDS ORDERED: ONDANSETRON HCL 4MG/2ML INJ IV PRN (18:00)
[2019-02-15] MEDS ORDERED: HYDROCODONE/ACETAMINOPHEN 5/325MG TABLET PO PRN (18:00)
[2019-02-15] MEDS ORDERED: CLONIDINE 0.1MG TABLET PO PRN (18:00)
[2019-02-15] MEDS ORDERED: MAGNESIUM/ALUMINUM HYDROXIDE/SIMETHICONE 30ML UDC PO PRN (18:00)
[2019-02-15] MEDS ORDERED: DOCUSATE SODIUM 100MG CAPSULE PO PRN (18:00)
[2019-02-15] MEDS ORDERED: IPRATROPIUM/ALBUTEROL 0.5-3(2.5)MG/3ML NEB INH PRN (18:00)
[2019-02-15] MEDS ORDERED: DEXTROSE 50% WATER 50ML SYRINGE IV PRN (18:00)
[2019-02-15] MEDS ORDERED: ACETAMINOPHEN 650MG SUPP PR PRN (18:00)
[2019-02-15] MEDS ORDERED: ACETAMINOPHEN 325MG TABLET PO PRN (18:00)
[2019-02-15] MEDS ORDERED: DIPHENHYDRAMINE 50MG/ML VIAL IV PRN (18:00)
[2019-02-15] MEDS: SODIUM CHLORIDE 0.45% 1,000 ML IV SCH (18:31)
[2019-02-15 18:43] VITALS: BP 111/69
[2019-02-15] MEDS ORDERED: AMLO2.5T2 PO (19:00)
[2019-02-15] MEDS ORDERED: IPRA3AMP9 NEB (19:00)
[2019-02-15] MEDS ORDERED: INSU100I28 SQ (19:00)
[2019-02-15] MEDS ORDERED: CLOP75TA4 PO (19:00)
[2019-02-15] MEDS ORDERED: CLON-457 PO (19:00)
[2019-02-15] MEDS ORDERED: LACT10SO7 PO (19:00)
[2019-02-15] MEDS ORDERED: HYDR-4001 PO (19:00)
[2019-02-15 20:00] VITALS: BP 119/78
[2019-02-15] MEDS: CEFEPIME 1,000 MG in DEXTROSE 5% WATER 50 ML IV SCH (21:06)
[2019-02-15] MEDS: VANCOMYCIN 1 G PREMIX 200 ML IV SCH (21:07)
[2019-02-15] MEDS: ENOXAPARIN 30MG/0.3ML SYR SUBCUT SCH (21:08)
[2019-02-15] MEDS: BLOOD SUGAR DIAGNOSTIC STRIP TEST SCH (21:11)
[2019-02-15] MEDS: INSULIN LISPRO 100 UNITS/ML SUBCUT SCH (21:11)
[2019-02-16] VITALS: BP 120/72
[2019-02-16 04:00] VITALS: BP 110/60
[2019-02-16] MEDS: BLOOD SUGAR DIAGNOSTIC STRIP TEST SCH ×4 (06:25→20:41)
[2019-02-16] MEDS: INSULIN LISPRO 100 UNITS/ML SUBCUT SCH ×4 (06:25→22:20)
[2019-02-16 06:59] LABS: BASOPHILS % 0.6 % (0.0-2.0); EOSINOPHILS % 3.4 % (0.0-5.0); HEMATOCRIT. 33.5 % (42.0-52.0); HEMOGLOBIN. 11.7 g/dL (14.0-18.0); LYMPHOCYTES % 16.5 % (20.0-50.0); MEAN CORPUSCULAR HEMOGLOBIN 31.5 pg (28.0-32.0); MEAN CORPUSCULAR VOLUME 90.2 fL (80.0-94.0); MONOCYTES % 13.9 % (2.0-8.0); NEUTROPHILS % 65.6 % (40.0-76.0); PLATELET 151 x1000/uL (130-400); RED BLOOD CELL COUNT 3.72 mill/uL (4.7-6.1); RED CELL DISTRIBUTION WIDTH 16.6 % (11.6-14.6)
[2019-02-16 07:11] LABS: CHLORIDE 106 mEq/L (98-107)
[2019-02-16 07:19] LABS: HDL CHOLESTEROL 42 mg/dL (40-59); LDL CHOLESTEROL 35 mg/dL (5-100)
[2019-02-16 07:21] LABS: T4 FREE 3.08 ng/dL (0.76-1.46)
[2019-02-16 08:00] VITALS: BP 123/65
[2019-02-16] MEDS: CEFEPIME 1,000 MG in DEXTROSE 5% WATER 50 ML IV SCH ×2 (08:12→20:40)
[2019-02-16] MEDS: VANCOMYCIN 1 G PREMIX 200 ML IV SCH ×2 (08:12→20:41)
[2019-02-16] MEDS: ENOXAPARIN 30MG/0.3ML SYR SUBCUT SCH (08:13)
[2019-02-16 10:49] LABS: CLARITY URINE CLEAR (CLEAR); COLOR URINE YELLOW (YELLOW); KETONES URINE NEGATIVE (NEGATIVE); LEUKOCYTE ESTERASE URINE TRACE (NEGATIVE); NITRITE URINE NEGATIVE (NEGATIVE); OCCULT BLOOD URINE NEGATIVE (NEGATIVE); PROTEIN URINE NEGATIVE (NEGATIVE); SPECIFIC GRAVITY URINE 1.012 (1.005-1.030)
[2019-02-16 11:07] LABS: *AMPHETAMINES SCREEN URINE NEGATIVE (NEGATIVE)
[2019-02-16 11:08] LABS: *BENZODIAZEPINES SCREEN URINE NEGATIVE (NEGATIVE); *COCAINE SCREEN URINE NEGATIVE (NEGATIVE); CANNABINOID URINE SCREEN NEGATIVE (NEGATIVE); METHADONE URINE SCREEN NEGATIVE (NEGATIVE); PHENCYCLIDINE URINE SCREEN NEGATIVE (NEGATIVE)
[2019-02-16 11:09] LABS: *BARBITURATES SCREEN URINE NEGATIVE (NEGATIVE)
[2019-02-16 11:10] LABS: OPIATES URINE SCREEN NEGATIVE (NEGATIVE)
[2019-02-16] MEDS ORDERED: POTASSIUM CHLORIDE 20MEQ TABLET SR PO NR (13:11)
[2019-02-16 16:00] VITALS: BP 123/65
[2019-02-16 20:00] VITALS: BP 125/77
[2019-02-16] MEDS: ENOXAPARIN 40MG/0.4ML SYR SUBCUT SCH (20:40)
[2019-02-17] VITALS: BP 130/81
[2019-02-17] MEDS: SODIUM CHLORIDE 0.45% 1,000 ML IV SCH ×2 (03:30→12:14)
[2019-02-17] MEDS: BLOOD SUGAR DIAGNOSTIC STRIP TEST SCH ×4 (06:45→21:35)
[2019-02-17 08:00] VITALS: BP 118/76
[2019-02-17] MEDS: CEFEPIME 1,000 MG in DEXTROSE 5% WATER 50 ML IV SCH ×2 (08:16→21:34)
[2019-02-17] MEDS: INSULIN LISPRO 100 UNITS/ML SUBCUT SCH ×4 (08:17→21:58)
[2019-02-17] MEDS: ENOXAPARIN 40MG/0.4ML SYR SUBCUT SCH ×2 (10:33→21:35)
[2019-02-17 12:00] VITALS: BP 131/74
[2019-02-17] MEDS ORDERED: VANCOMYCIN 1250MG in DEXTROSE 5% WATER 250ML IV SCH (12:00)
[2019-02-17] MEDS: SILVER SULFADIAZINE 1% CREAM 50GM TOP SCH (12:14)
[2019-02-17 16:00] VITALS: BP 141/88
[2019-02-17] MEDS: VANCOMYCIN 1,250 MG in DEXT 5% WATER 250 ML IV SCH (17:00)
[2019-02-17 20:00] VITALS: BP 108/58
[2019-02-18 00:25] VITALS: BP 120/78
[2019-02-18 04:00] VITALS: BP 104/70
[2019-02-18] MEDS: BLOOD SUGAR DIAGNOSTIC STRIP TEST SCH ×4 (07:12→21:00)
[2019-02-18] MEDS: INSULIN LISPRO 100 UNITS/ML SUBCUT SCH ×3 (07:15→18:08)
[2019-02-18] MEDS: SODIUM CHLORIDE 0.45% 1,000 ML IV SCH (07:21)
[2019-02-18 08:00] VITALS: BP 128/89
[2019-02-18] MEDS: ENOXAPARIN 40MG/0.4ML SYR SUBCUT SCH ×2 (08:03→23:35)
[2019-02-18] MEDS: CEFEPIME 1,000 MG in DEXTROSE 5% WATER 50 ML IV SCH ×2 (08:04→23:58)
[2019-02-18] MEDS: SILVER SULFADIAZINE 1% CREAM 50GM TOP SCH (10:16)
[2019-02-18] MEDS: VANCOMYCIN 1,250 MG in DEXT 5% WATER 250 ML IV SCH (10:16)
[2019-02-18 12:00] VITALS: BP 131/73
[2019-02-18] MEDS: FUROSEMIDE 40MG/4ML VIAL IVP SCH ×2 (12:22→23:35)
[2019-02-18 13:34] LABS: HEMATOCRIT 35.5 % (42.0-52.0); HEMOGLOBIN 11.9 g/dL (14.0-18.0); MEAN CORPUSCULAR HEMOGLOBIN 30.8 pg (28.0-32.0); MEAN CORPUSCULAR VOLUME 91.7 fL (80.0-94.0); PLATELET 171 x1000/uL (130-400); RED BLOOD CELL COUNT 3.87 mill/uL (4.7-6.1)
[2019-02-18 13:41] LABS: CHLORIDE 105 mEq/L (98-107)
[2019-02-18 16:00] VITALS: BP 110/59
[2019-02-18 20:00] VITALS: BP 115/34
[2019-02-19] VITALS: BP 128/79
[2019-02-19] MEDS: INSULIN LISPRO 100 UNITS/ML SUBCUT SCH ×5 (00:04→21:18)
[2019-02-19] MEDS: VANCOMYCIN 1,250 MG in DEXT 5% WATER 250 ML IV SCH (05:25)
[2019-02-19] MEDS: SODIUM CHLORIDE 0.45% 1,000 ML IV SCH ×2 (05:26→21:15)
[2019-02-19] MEDS: BLOOD SUGAR DIAGNOSTIC STRIP TEST SCH ×4 (06:43→21:14)
[2019-02-19 07:16] LABS: HEMATOCRIT 36.3 % (42.0-52.0); HEMOGLOBIN 12.3 g/dL (14.0-18.0); MEAN CORPUSCULAR HEMOGLOBIN 30.7 pg (28.0-32.0); PLATELET 172 x1000/uL (130-400); RED BLOOD CELL COUNT 3.99 mill/uL (4.7-6.1); RED CELL DISTRIBUTION WIDTH 16.8 % (11.6-14.6)
[2019-02-19 07:31] LABS: CHLORIDE 104 mEq/L (98-107)
[2019-02-19 08:00] VITALS: BP 136/86
[2019-02-19] MEDS: FUROSEMIDE 40MG/4ML VIAL IVP SCH ×2 (08:13→17:58)
[2019-02-19] MEDS: SILVER SULFADIAZINE 1% CREAM 50GM TOP SCH (08:14)
[2019-02-19] MEDS: ENOXAPARIN 40MG/0.4ML SYR SUBCUT SCH ×2 (08:14→21:16)
[2019-02-19] MEDS ORDERED: LIDOCAINE HCL 1% 20ML VIAL (Pyxis) INJ ONE (08:30)
[2019-02-19] MEDS: CEFEPIME 1,000 MG in DEXTROSE 5% WATER 50 ML IV SCH ×2 (09:39→21:14)
[2019-02-19] MEDS ORDERED: POTASSIUM CHLORIDE 20MEQ TABLET SR PO NR (11:00)
[2019-02-19 12:00] VITALS: BP 120/76
[2019-02-19 13:17] LABS: CHLORIDE 100 mEq/L (98-107)
[2019-02-19 16:00] VITALS: BP 133/79
[2019-02-19 18:23] VITALS: BP 133/79
[2019-02-20] MEDS ORDERED: POTASSIUM CHLORIDE 20MEQ TABLET SR PO SCH (09:00)
== END 2019-02-19 21:53 | DRG 637 ==
LOC: ER 12:58 → 6EST 14:33 → EDBEDREQTM 14:39 → EDBEDREQ 14:39 → EDBEDREQSVC 14:39 → ENRESERV 14:57 → 5WST 17:04
PROVIDERS: ADMIT Internal Medicine; ATTEND Internal Medicine
PROC: 02HV33Z Insertion of Infusion Device into Superior Vena Cava, Percutaneous Approach (ICD-10-PCS; principal; 2019-02-19)
PROC: B5181ZA Fluoroscopy of Superior Vena Cava using Low Osmolar Contrast, Guidance (ICD-10-PCS; 2019-02-19)
PROC: B548ZZA Ultrasonography of Superior Vena Cava, Guidance (ICD-10-PCS; 2019-02-19)
DX: E11.621 Type 2 diabetes mellitus with foot ulcer (principal); I50.43 Acute on chronic combined systolic (congestive) and diastolic (congestive) heart failure; M86.672 Other chronic osteomyelitis, left ankle and foot; D68.59 Other primary thrombophilia; L03.116 Cellulitis of left lower limb; I42.9 Cardiomyopathy, unspecified; D64.9 Anemia, unspecified; L97.529 Non-pressure chronic ulcer of other part of left foot with unspecified severity; E11.69 Type 2 diabetes mellitus with other specified complication; E11.51 Type 2 diabetes mellitus with diabetic peripheral angiopathy without gangrene; I27.20 Pulmonary hypertension, unspecified; E66.01 Morbid (severe) obesity due to excess calories; Z16.21 Resistance to vancomycin; I87.2 Venous insufficiency (chronic) (peripheral); B96.5 Pseudomonas (aeruginosa) (mallei) (pseudomallei) as the cause of diseases classified elsewhere; I87.8 Other specified disorders of veins; E78.5 Hyperlipidemia, unspecified; I89.0 Lymphedema, not elsewhere classified; E11.610 Type 2 diabetes mellitus with diabetic neuropathic arthropathy; I11.0 Hypertensive heart disease with heart failure; B95.2 Enterococcus as the cause of diseases classified elsewhere; E78.00 Pure hypercholesterolemia, unspecified; Z95.1 Presence of aortocoronary bypass graft; I25.10 Atherosclerotic heart disease of native coronary artery without angina pectoris; Z86.73 Personal history of transient ischemic attack (TIA), and cerebral infarction without residual deficits; Z91.19 Patient's noncompliance with other medical treatment and regimen; Z95.810 Presence of automatic (implantable) cardiac defibrillator; Z79.02 Long term (current) use of antithrombotics/antiplatelets; Z79.82 Long term (current) use of aspirin; Z79.899 Other long term (current) drug therapy; Z95.820 Peripheral vascular angioplasty status with implants and grafts
CPT/HCPCS: 36415; 36573; 71045; 80048; 80061; 80202; 80305; 81003; 82962; 83605; 84439; 84443; 85027; 87070; 87077; 93005; 93923; 93970; 96374; 97022; 97116; 97162; 97535; 99285; C1725; J0692; J1650; J1815; J1940; J2543; J3370; J3490; J7030; J7060

== ENCOUNTER 2019-08-27 00:49 | Inpatient (IN) | payer MEDICARE, MEDICAID ==
[~2019-08-27] VITALS: Ht 182.9 cm; Wt 125.2 kg
[~2019-08-27 00:49] MED LIST changes: +AMLO2.5T2 PO; -ASPI-1393 PO; +ASPI-1497 PO; +CLON-457 PO; +CLOP75TA4 PO; +HYDR-4001 PO; +INSU100I28 SQ; +IPRA3AMP9 NEB; +LACT10SO7 PO
[2019-08-27] MEDS ORDERED: ONDANSETRON HCL 4MG/2ML INJ IV STA (02:10)
[2019-08-27] MEDS ORDERED: SODIUM CHLORIDE 0.9% 1,000 ML IV ONE (02:10)
[2019-08-27] MEDS ORDERED: VANCOMYCIN 1 G PREMIX 200 ML IV ONE (02:15)
[2019-08-27] MEDS ORDERED: PIPERACILLIN/TAZ 3.375G PREMIX 50 ML IV ONE (02:15)
[2019-08-27 02:22] LABS: HEMATOCRIT. 31.5 % (42.0-52.0); HEMOGLOBIN. 10.8 g/dL (14.0-18.0); MEAN CORPUSCULAR HEMOGLOBIN 31.8 pg (28.0-32.0); MEAN CORPUSCULAR VOLUME 92.8 fL (80.0-94.0); MEAN PLATELET VOLUME 10.1 fl (7.4-10.4); PLATELET 217 x1000/uL (130-400); RED CELL DISTRIBUTION WIDTH 17.3 % (11.6-14.6)
[2019-08-27 02:24] LABS: CHLORIDE 103 mEq/L (98-107)
[2019-08-27 02:33] LABS: INR 1.5; PROTHROMBIN TIME 16.5 sec (9.6-11.0)
[2019-08-27 02:37] LABS: PLATELET ESTIMATE NORMAL
[2019-08-27 02:58] LABS: BG BASE EXCESS -5.3 mmol/L (-2.0-2.0); BG CARBOXYHEMOGLOBIN 0.3 % (0.5-1.5); BG DEOXYHEMOGLOBIN 3.5 % (0.0-5.0); BG FRACTION INSPIRED OXYGEN 21; BG HCO3 ACT 16.6 mmol/L (22.0-26.0); BG METHEMOGLOBIN 0.1 % (0.0-1.5); BG OXYGEN SATURATION 96.5 % (92.0-98.5); BG OXYHEMOGLOBIN 96.1 % (94.0-97.0); BG PCO2 22.9 mmHg (35.0-45.0); BG PH 7.478 (7.350-7.450); BG PO2 85.6 mmHg (75.0-100.0); BG SAMPLE SITE RIGHT RADIAL; BG TOTAL HEMOGLOBIN 11.4 g/dL (12.0-18.0); BG VENT MODE ROOM AIR
[2019-08-27] MEDS ORDERED: DIPHENHYDRAMINE 50MG/ML VIAL IV PRN (10:45)
[2019-08-27] MEDS ORDERED: NA PHOS,M-B/NA PHOS,DI-BA ENEMA 118ML PR PRN (10:45)
[2019-08-27] MEDS ORDERED: PIPERACILLIN/TAZOBACTAM 2.25 G in DEXTROSE 5% WATER 50 ML IV SCH (10:45)
[2019-08-27] MEDS ORDERED: LORAZEPAM 0.5MG TABLET PO PRN (10:45)
[2019-08-27] MEDS ORDERED: IPRATROPIUM/ALBUTEROL 0.5-3(2.5)MG/3ML NEB NEB PRN (10:45)
[2019-08-27] MEDS ORDERED: CLONIDINE 0.1MG TABLET PO PRN (10:45)
[2019-08-27] MEDS ORDERED: MAGNESIUM/ALUMINUM HYDROXIDE/SIMETHICONE 30ML UDC PO PRN (10:45)
[2019-08-27] MEDS ORDERED: ACETAMINOPHEN 325MG TABLET PO PRN (10:45)
[2019-08-27] MEDS ORDERED: DOCUSATE SODIUM 100MG CAPSULE PO PRN (10:45)
[2019-08-27] MEDS ORDERED: ACETAMINOPHEN 650MG SUPP PR PRN (10:45)
[2019-08-27] MEDS ORDERED: ONDANSETRON HCL 4MG/2ML INJ IV PRN (10:45)
[2019-08-27] MEDS ORDERED: DEXTROSE 50% WATER 50ML SYRINGE IV PRN (10:45)
[2019-08-27] MEDS ORDERED: HYDROCODONE/ACETAMINOPHEN 5/325MG TABLET PO PRN (10:45)
[2019-08-27] MEDS ORDERED: PIPERACILLIN/TAZ 3.375G PREMIX 50 ML IV SCH (11:00)
[2019-08-27] MEDS: GUAIFENESIN 200MG/10ML SUGAR FREE UDC PO PRN (11:03)
[2019-08-27] MEDS: BLOOD SUGAR DIAGNOSTIC STRIP TEST SCH ×4 (13:32→21:31)
[2019-08-27] MEDS: INSULIN LISPRO 100 UNITS/ML SUBCUT SCH ×3 (13:33→21:00)
[2019-08-27] MEDS ORDERED: FUROSEMIDE 40MG/4ML VIAL IVP NR (14:30)
[2019-08-27 16:14] LABS: CREATINE KINASE MB FRACTION 1.7 ng/mL (0.5-3.6)
[2019-08-27 16:55] VITALS: BP 106/68
[2019-08-27 18:00] VITALS: BP 101/71
[2019-08-27] MEDS ORDERED: PIPERACILLIN/TAZOBACTAM 3.375 G in DEXT 5% WATER 100 ML IV SCH (18:30)
[2019-08-27] MEDS: SODIUM CHLORIDE 0.45% 1,000 ML IV SCH (18:45)
[2019-08-27 20:00] VITALS: BP 108/67
[2019-08-27] MEDS ORDERED: VANCOMYCIN 750 MG PREMIX 150 ML IV SCH (20:00)
[2019-08-27] MEDS: PIPERACILLIN/TAZOBACTAM 3.375 G in DEXT 5% WATER 100 ML IV SCH (20:45)
[2019-08-27] MEDS: FAMOTIDINE 20MG TABLET PO SCH (21:30)
[2019-08-27 21:34] VITALS: BP 104/73
[2019-08-27 23:17] LABS: CREATINE KINASE MB FRACTION 1.6 ng/mL (0.5-3.6)
[2019-08-28] VITALS (13 sets, daily range): BP systolic 95–137; BP diastolic 36–83
[2019-08-28] MEDS: PIPERACILLIN/TAZOBACTAM 3.375 G in DEXT 5% WATER 100 ML IV SCH ×4 (02:06→20:41)
[2019-08-28] MEDS ORDERED: ACET650T37 PO (02:36)
[2019-08-28] MEDS ORDERED: DOCU100T PO (02:36)
[2019-08-28] MEDS ORDERED: POTA20TA82 PO (02:36)
[2019-08-28 06:37] LABS: CHLORIDE 106 mEq/L (98-107)
[2019-08-28 06:47] LABS: LDL CHOLESTEROL 29 mg/dL (5-100)
[2019-08-28 06:48] LABS: T4 FREE 2.57 ng/dL (0.76-1.46)
[2019-08-28 06:52] LABS: HDL CHOLESTEROL 7 mg/dL (40-59)
[2019-08-28] MEDS: BLOOD SUGAR DIAGNOSTIC STRIP TEST SCH ×4 (07:30→20:42)
[2019-08-28 07:32] LABS: CLARITY URINE CLOUDY (CLEAR); COLOR URINE DARK YELLOW (YELLOW); KETONES URINE NEGATIVE (NEGATIVE); LEUKOCYTE ESTERASE URINE 1+ (NEGATIVE); NITRITE URINE NEGATIVE (NEGATIVE); OCCULT BLOOD URINE NEGATIVE (NEGATIVE); PROTEIN URINE 1+ (NEGATIVE); SPECIFIC GRAVITY URINE 1.021 (1.005-1.030)
[2019-08-28 07:39] LABS: HEMATOCRIT. 35.4 % (42.0-52.0); HEMOGLOBIN. 11.8 g/dL (14.0-18.0); MEAN CORPUSCULAR HEMOGLOBIN 31.8 pg (28.0-32.0); MEAN CORPUSCULAR VOLUME 95.2 fL (80.0-94.0); MEAN PLATELET VOLUME 9.4 fl (7.4-10.4); PLATELET 139 x1000/uL (130-400); RED BLOOD CELL COUNT 3.71 mill/uL (4.7-6.1); RED CELL DISTRIBUTION WIDTH 17.5 % (11.6-14.6)
[2019-08-28 07:59] LABS: OPIATES URINE SCREEN PRESUMTIVE POSITIVE (NEGATIVE); PHENCYCLIDINE URINE SCREEN NEGATIVE (NEGATIVE)
[2019-08-28 08:00] LABS: *AMPHETAMINES SCREEN URINE NEGATIVE (NEGATIVE); *BARBITURATES SCREEN URINE NEGATIVE (NEGATIVE); *BENZODIAZEPINES SCREEN URINE NEGATIVE (NEGATIVE); *COCAINE SCREEN URINE NEGATIVE (NEGATIVE); CANNABINOID URINE SCREEN NEGATIVE (NEGATIVE)
[2019-08-28] MEDS: INSULIN LISPRO 100 UNITS/ML SUBCUT SCH ×4 (08:00→21:00)
[2019-08-28 08:01] LABS: METHADONE URINE SCREEN NEGATIVE (NEGATIVE)
[2019-08-28] MEDS ORDERED: VANCOMYCIN 1250MG in DEXTROSE 5% WATER 250ML IV SCH (10:00)
[2019-08-28] MEDS ORDERED: LIDOCAINE HCL 1% 20ML VIAL (Pyxis) INJ ONE (10:17)
[2019-08-28] MEDS ORDERED: SODIUM BICARBONATE 4% (2.4MEQ) 5ML VIAL IV ONE (10:17)
[2019-08-28] MEDS: SODIUM CHLORIDE 0.45% 1,000 ML IV SCH ×2 (12:42→23:02)
[2019-08-28 12:56] LABS: PLATELET ESTIMATE NORMAL
[2019-08-28] MEDS: VANCOMYCIN 1,250 MG in DEXT 5% WATER 250 ML IV SCH (13:24)
[2019-08-28] MEDS: FAMOTIDINE 20MG TABLET PO SCH (20:41)
[2019-08-28] MEDS: SILVER SULFADIAZINE 1% CREAM 50GM TOP SCH (20:42)
[2019-08-28 23:49] LABS: INR 1.4; PROTHROMBIN TIME 14.9 sec (9.6-11.0)
[2019-08-29] VITALS (12 sets, daily range): BP systolic 102–135; BP diastolic 54–89
[2019-08-29] MEDS: PIPERACILLIN/TAZOBACTAM 3.375 G in DEXT 5% WATER 100 ML IV SCH ×4 (02:58→21:47)
[2019-08-29] MEDS: VANCOMYCIN 1,250 MG in DEXT 5% WATER 250 ML IV SCH (05:31)
[2019-08-29 06:39] LABS: BASOPHILS % 0.5 % (0.0-2.0); EOSINOPHILS % 0.9 % (0.0-5.0); HEMATOCRIT. 32.1 % (42.0-52.0); HEMOGLOBIN. 11.1 g/dL (14.0-18.0); LYMPHOCYTES % 8.7 % (20.0-50.0); MEAN CORPUSCULAR HEMOGLOBIN 32.2 pg (28.0-32.0); MEAN CORPUSCULAR VOLUME 93.1 fL (80.0-94.0); MONOCYTES % 11.7 % (2.0-8.0); NEUTROPHILS % 78.2 % (40.0-76.0); PLATELET 148 x1000/uL (130-400); RED BLOOD CELL COUNT 3.45 mill/uL (4.7-6.1); RED CELL DISTRIBUTION WIDTH 16.9 % (11.6-14.6)
[2019-08-29 07:20] LABS: CHLORIDE 106 mEq/L (98-107)
[2019-08-29] MEDS: BLOOD SUGAR DIAGNOSTIC STRIP TEST SCH ×4 (07:30→21:47)
[2019-08-29] MEDS: INSULIN LISPRO 100 UNITS/ML SUBCUT SCH ×3 (08:00→21:00)
[2019-08-29] MEDS: SODIUM CHLORIDE 0.45% 1,000 ML IV SCH ×2 (08:56→21:46)
[2019-08-29] MEDS: SILVER SULFADIAZINE 1% CREAM 50GM TOP SCH (09:00)
[2019-08-29] MEDS ORDERED: IOHEXOL-350 100 ML BOTTLE ONE (10:11)
[2019-08-29 14:59] LABS: BG BASE EXCESS -2.8 mmol/L (-2.0-2.0); BG CARBOXYHEMOGLOBIN 0.2 % (0.5-1.5); BG DEOXYHEMOGLOBIN 2.7 % (0.0-5.0); BG HCO3 ACT 21.6 mmol/L (22.0-26.0); BG METHEMOGLOBIN 0.1 % (0.0-1.5); BG OXYGEN SATURATION 97.3 % (92.0-98.5); BG PCO2 36.2 mmHg (35.0-45.0); BG PH 7.394 (7.350-7.450); BG PO2 98.8 mmHg (75.0-100.0); BG SAMPLE SITE RIGHT RADIAL; BG TOTAL HEMOGLOBIN 12.2 g/dL (12.0-18.0); BG VENT MODE NASAL CANNULA
[2019-08-29] MEDS: IPRATROPIUM/ALBUTEROL 0.5-3(2.5)MG/3ML NEB HHN SCH (20:55)
[2019-08-29] MEDS: FAMOTIDINE 20MG TABLET PO SCH (21:45)
[2019-08-30] VITALS (12 sets, daily range): BP systolic 111–148; BP diastolic 69–93
[2019-08-30] MEDS: VANCOMYCIN 1,250 MG in DEXT 5% WATER 250 ML IV SCH (01:50)
[2019-08-30] MEDS: IPRATROPIUM/ALBUTEROL 0.5-3(2.5)MG/3ML NEB HHN SCH ×4 (03:15→19:46)
[2019-08-30] MEDS: PIPERACILLIN/TAZOBACTAM 3.375 G in DEXT 5% WATER 100 ML IV SCH ×4 (03:54→20:22)
[2019-08-30 07:15] LABS: BASOPHILS % 0.6 % (0.0-2.0); EOSINOPHILS % 2.6 % (0.0-5.0); HEMATOCRIT. 35.9 % (42.0-52.0); HEMOGLOBIN. 12.2 g/dL (14.0-18.0); LYMPHOCYTES % 9.6 % (20.0-50.0); MEAN CORPUSCULAR HEMOGLOBIN 31.4 pg (28.0-32.0); MEAN CORPUSCULAR VOLUME 92.6 fL (80.0-94.0); MEAN PLATELET VOLUME 8.8 fl (7.4-10.4); MONOCYTES % 14.3 % (2.0-8.0); NEUTROPHILS % 72.9 % (40.0-76.0); PLATELET 173 x1000/uL (130-400); RED BLOOD CELL COUNT 3.88 mill/uL (4.7-6.1); RED CELL DISTRIBUTION WIDTH 17.4 % (11.6-14.6)
[2019-08-30] MEDS: BLOOD SUGAR DIAGNOSTIC STRIP TEST SCH ×4 (07:30→20:23)
[2019-08-30] MEDS: INSULIN LISPRO 100 UNITS/ML SUBCUT SCH ×4 (08:00→20:23)
[2019-08-30 08:35] LABS: CHLORIDE 105 mEq/L (98-107)
[2019-08-30] MEDS: SILVER SULFADIAZINE 1% CREAM 50GM TOP SCH (09:00)
[2019-08-30] MEDS: SODIUM CHLORIDE 0.45% 1,000 ML IV SCH (09:40)
[2019-08-30] MEDS: VANCOMYCIN 1 G PREMIX 200 ML IV SCH (14:16)
[2019-08-30] MEDS: FAMOTIDINE 20MG TABLET PO SCH (20:22)
[2019-08-31] VITALS (11 sets, daily range): BP systolic 119–144; BP diastolic 55–85
[2019-08-31] MEDS: IPRATROPIUM/ALBUTEROL 0.5-3(2.5)MG/3ML NEB HHN SCH ×4 (01:25→20:47)
[2019-08-31] MEDS: PIPERACILLIN/TAZOBACTAM 3.375 G in DEXT 5% WATER 100 ML IV SCH ×4 (01:33→20:19)
[2019-08-31] MEDS: VANCOMYCIN 1 G PREMIX 200 ML IV SCH ×2 (02:12→13:56)
[2019-08-31 05:43] LABS: HEMATOCRIT. 33.7 % (42.0-52.0); HEMOGLOBIN. 11.4 g/dL (14.0-18.0); MEAN CORPUSCULAR HEMOGLOBIN 31.6 pg (28.0-32.0); MEAN CORPUSCULAR VOLUME 93.3 fL (80.0-94.0); MEAN PLATELET VOLUME 8.2 fl (7.4-10.4); PLATELET 185 x1000/uL (130-400); RED BLOOD CELL COUNT 3.62 mill/uL (4.7-6.1); RED CELL DISTRIBUTION WIDTH 17.6 % (11.6-14.6)
[2019-08-31] MEDS: SODIUM CHLORIDE 0.45% 1,000 ML IV SCH (05:49)
[2019-08-31 06:17] LABS: CHLORIDE 105 mEq/L (98-107)
[2019-08-31] MEDS: BLOOD SUGAR DIAGNOSTIC STRIP TEST SCH ×4 (07:31→21:37)
[2019-08-31] MEDS: INSULIN LISPRO 100 UNITS/ML SUBCUT SCH ×4 (08:00→21:00)
[2019-08-31] MEDS: SILVER SULFADIAZINE 1% CREAM 50GM TOP SCH (08:48)
[2019-08-31 12:52] LABS: PLATELET ESTIMATE NORMAL
[2019-08-31 14:19] LABS: BG BASE EXCESS -4.9 mmol/L (-2.0-2.0); BG CARBOXYHEMOGLOBIN 0.4 % (0.5-1.5); BG DEOXYHEMOGLOBIN 2.2 % (0.0-5.0); BG FRACTION INSPIRED OXYGEN 36; BG METHEMOGLOBIN 0.3 % (0.0-1.5); BG OXYGEN SATURATION 97.8 % (92.0-98.5); BG OXYHEMOGLOBIN 97.1 % (94.0-97.0); BG PH 7.317 (7.350-7.450); BG PO2 113.2 mmHg (75.0-100.0); BG SAMPLE SITE LEFT RADIAL; BG TOTAL HEMOGLOBIN 11.9 g/dL (12.0-18.0); BG VENT MODE NASAL CANNULA
[2019-08-31 16:24] LABS: BG BASE EXCESS -5.3 mmol/L (-2.0-2.0); BG BILEVEL POS AIRWAY PRESSURE 15/5; BG CARBOXYHEMOGLOBIN 0.1 % (0.5-1.5); BG DEOXYHEMOGLOBIN 2.5 % (0.0-5.0); BG FRACTION INSPIRED OXYGEN 35; BG HCO3 ACT 19.7 mmol/L (22.0-26.0); BG METHEMOGLOBIN 0.1 % (0.0-1.5); BG OXYGEN SATURATION 97.5 % (92.0-98.5); BG OXYHEMOGLOBIN 97.3 % (94.0-97.0); BG PCO2 36.8 mmHg (35.0-45.0); BG PH 7.347 (7.350-7.450); BG SAMPLE SITE LEFT RADIAL; BG TOTAL HEMOGLOBIN 12.1 g/dL (12.0-18.0); BG VENT MODE MASK - BIPAP
[2019-08-31] MEDS: FAMOTIDINE 20MG TABLET PO SCH (20:20)
[2019-09-01] VITALS (11 sets, daily range): BP systolic 118–157; BP diastolic 64–92
[2019-09-01] MEDS: PIPERACILLIN/TAZOBACTAM 3.375 G in DEXT 5% WATER 100 ML IV SCH ×4 (01:12→21:22)
[2019-09-01] MEDS: VANCOMYCIN 1 G PREMIX 200 ML IV SCH ×2 (01:13→13:28)
[2019-09-01] MEDS: IPRATROPIUM/ALBUTEROL 0.5-3(2.5)MG/3ML NEB HHN SCH ×4 (02:14→22:13)
[2019-09-01] MEDS: BLOOD SUGAR DIAGNOSTIC STRIP TEST SCH ×4 (07:12→21:21)
[2019-09-01] MEDS: INSULIN LISPRO 100 UNITS/ML SUBCUT SCH ×4 (07:37→21:22)
[2019-09-01 09:43] LABS: BG BASE EXCESS -1.4 mmol/L (-2.0-2.0); BG CARBOXYHEMOGLOBIN 0.4 % (0.5-1.5); BG FRACTION INSPIRED OXYGEN 28; BG HCO3 ACT 22.6 mmol/L (22.0-26.0); BG METHEMOGLOBIN 0.1 % (0.0-1.5); BG OXYHEMOGLOBIN 97.5 % (94.0-97.0); BG PCO2 35.8 mmHg (35.0-45.0); BG PH 7.419 (7.350-7.450); BG PO2 101.6 mmHg (75.0-100.0); BG SAMPLE SITE RIGHT RADIAL; BG TOTAL HEMOGLOBIN 12.4 g/dL (12.0-18.0); BG VENT MODE NASAL CANNULA
[2019-09-01] MEDS: SILVER SULFADIAZINE 1% CREAM 50GM TOP SCH (09:49)
[2019-09-01 10:16] LABS: BASOPHILS % 0.5 % (0.0-2.0); EOSINOPHILS % 3.9 % (0.0-5.0); HEMATOCRIT. 35.2 % (42.0-52.0); HEMOGLOBIN. 11.9 g/dL (14.0-18.0); LYMPHOCYTES % 14.1 % (20.0-50.0); MEAN CORPUSCULAR HEMOGLOBIN 31.6 pg (28.0-32.0); MEAN CORPUSCULAR VOLUME 93.6 fL (80.0-94.0); MEAN PLATELET VOLUME 8.1 fl (7.4-10.4); MONOCYTES % 14.2 % (2.0-8.0); NEUTROPHILS % 67.3 % (40.0-76.0); PLATELET 201 x1000/uL (130-400); RED BLOOD CELL COUNT 3.77 mill/uL (4.7-6.1); RED CELL DISTRIBUTION WIDTH 17.4 % (11.6-14.6)
[2019-09-01 10:51] LABS: CHLORIDE 104 mEq/L (98-107)
[2019-09-01] MEDS: FAMOTIDINE 20MG TABLET PO SCH (21:21)
[2019-09-01] MEDS: GUAIFENESIN 200MG/10ML SUGAR FREE UDC PO PRN (21:34)
[2019-09-02] VITALS (12 sets, daily range): BP systolic 121–146; BP diastolic 66–86
[2019-09-02] MEDS: PIPERACILLIN/TAZOBACTAM 3.375 G in DEXT 5% WATER 100 ML IV SCH ×4 (01:04→20:02)
[2019-09-02] MEDS: VANCOMYCIN 1 G PREMIX 200 ML IV SCH ×2 (02:35→13:48)
[2019-09-02] MEDS: IPRATROPIUM/ALBUTEROL 0.5-3(2.5)MG/3ML NEB HHN SCH ×3 (04:38→16:19)
[2019-09-02 07:32] LABS: BASOPHILS % 0.5 % (0.0-2.0); HEMATOCRIT. 34.5 % (42.0-52.0); HEMOGLOBIN. 11.8 g/dL (14.0-18.0); LYMPHOCYTES % 17.8 % (20.0-50.0); MEAN CORPUSCULAR HEMOGLOBIN 31.6 pg (28.0-32.0); MEAN CORPUSCULAR VOLUME 92.9 fL (80.0-94.0); MEAN PLATELET VOLUME 7.9 fl (7.4-10.4); MONOCYTES % 14.2 % (2.0-8.0); NEUTROPHILS % 62.5 % (40.0-76.0); PLATELET 191 x1000/uL (130-400); RED BLOOD CELL COUNT 3.72 mill/uL (4.7-6.1); RED CELL DISTRIBUTION WIDTH 17.3 % (11.6-14.6)
[2019-09-02] MEDS: BLOOD SUGAR DIAGNOSTIC STRIP TEST SCH ×4 (07:53→20:02)
[2019-09-02] MEDS: INSULIN LISPRO 100 UNITS/ML SUBCUT SCH ×4 (07:53→20:02)
[2019-09-02 13:32] LABS: CHLORIDE 106 mEq/L (98-107)
[2019-09-02] MEDS: FAMOTIDINE 20MG TABLET PO SCH (20:02)
== END 2019-09-02 21:36 | DRG 871 ==
LOC: ER 00:49 → 5EST 04:21 → EDBEDREQTM 04:26 → EDBEDREQ 04:26 → ENRESERV 15:53
PROVIDERS: ADMIT Internal Medicine; ATTEND Internal Medicine
PROC: 02HV33Z Insertion of Infusion Device into Superior Vena Cava, Percutaneous Approach (ICD-10-PCS; principal; 2019-08-28)
PROC: B5181ZA Fluoroscopy of Superior Vena Cava using Low Osmolar Contrast, Guidance (ICD-10-PCS; 2019-08-28)
PROC: B548ZZA Ultrasonography of Superior Vena Cava, Guidance (ICD-10-PCS; 2019-08-28)
PROC: 0W9G30Z Drainage of Peritoneal Cavity with Drainage Device, Percutaneous Approach (ICD-10-PCS; 2019-08-28)
PROC: 5A09357 Assistance with Respiratory Ventilation, Less than 24 Consecutive Hours, Continuous Positive Airway Pressure (ICD-10-PCS; 2019-08-31)
PROC: 5A09357 Assistance with Respiratory Ventilation, Less than 24 Consecutive Hours, Continuous Positive Airway Pressure (ICD-10-PCS; 2019-08-31)
DX: A41.50 Gram-negative sepsis, unspecified (principal); I50.43 Acute on chronic combined systolic (congestive) and diastolic (congestive) heart failure; G93.41 Metabolic encephalopathy; E43 Unspecified severe protein-calorie malnutrition; J96.00 Acute respiratory failure, unspecified whether with hypoxia or hypercapnia; I13.0 Hypertensive heart and chronic kidney disease with heart failure and stage 1 through stage 4 chronic kidney disease, or unspecified chronic kidney disease; M86.672 Other chronic osteomyelitis, left ankle and foot; D68.59 Other primary thrombophilia; R18.8 Other ascites; R47.01 Aphasia; L03.116 Cellulitis of left lower limb; N17.9 Acute kidney failure, unspecified; E78.5 Hyperlipidemia, unspecified; I27.20 Pulmonary hypertension, unspecified; I25.5 Ischemic cardiomyopathy; I25.10 Atherosclerotic heart disease of native coronary artery without angina pectoris; E11.40 Type 2 diabetes mellitus with diabetic neuropathy, unspecified; L97.529 Non-pressure chronic ulcer of other part of left foot with unspecified severity; N18.9 Chronic kidney disease, unspecified; E11.22 Type 2 diabetes mellitus with diabetic chronic kidney disease; E11.621 Type 2 diabetes mellitus with foot ulcer; B96.4 Proteus (mirabilis) (morganii) as the cause of diseases classified elsewhere; B95.2 Enterococcus as the cause of diseases classified elsewhere; E11.69 Type 2 diabetes mellitus with other specified complication; E11.51 Type 2 diabetes mellitus with diabetic peripheral angiopathy without gangrene; E11.65 Type 2 diabetes mellitus with hyperglycemia; S81.812A Laceration without foreign body, left lower leg, initial encounter; K76.0 Fatty (change of) liver, not elsewhere classified; D69.6 Thrombocytopenia, unspecified; Z68.37 Body mass index [BMI] 37.0-37.9, adult; E11.610 Type 2 diabetes mellitus with diabetic neuropathic arthropathy; I87.2 Venous insufficiency (chronic) (peripheral); R16.2 Hepatomegaly with splenomegaly, not elsewhere classified; Z95.820 Peripheral vascular angioplasty status with implants and grafts; Z95.810 Presence of automatic (implantable) cardiac defibrillator; Z90.49 Acquired absence of other specified parts of digestive tract; Z91.19 Patient's noncompliance with other medical treatment and regimen; Z86.73 Personal history of transient ischemic attack (TIA), and cerebral infarction without residual deficits; I25.2 Old myocardial infarction; G47.33 Obstructive sleep apnea (adult) (pediatric); Z79.4 Long term (current) use of insulin; Z87.891 Personal history of nicotine dependence; Z82.49 Family history of ischemic heart disease and other diseases of the circulatory system; Z82.3 Family history of stroke; Z95.1 Presence of aortocoronary bypass graft; Z86.19 Personal history of other infectious and parasitic diseases; X58.XXXA Exposure to other specified factors, initial encounter; Y93.89 Activity, other specified; Y92.89 Other specified places as the place of occurrence of the external cause; Y99.8 Other external cause status
CPT/HCPCS: 36415; 36573; 36600; 49083; 71045; 72191; 73700; 73706; 76700; 76705; 76937; 78315; 78580; 80048; 80053; 80061; 80202; 80305; 81003; 82040; 82140; 82375; 82550; 82553; 82805; 82962; 83605; 83615; 83735; 83880; 84145; 84439; 84443; 84478; 84484; 85025; 85651; 86140; 86850; 86900; 87070; 87077; 87186; 87804; 88108; 88304; 88311; 88312; 93005; 93306; 93923; 94640; 94660; 97162; 97530; 99291; A9503; C1725; J1815; J1940; J2405; J2543; J3370; J3490; J7030; J7060; Q9967

== ENCOUNTER 2019-10-15 15:02 | Inpatient (IN) | payer MEDICARE, MEDICAID ==
[~2019-10-15] VITALS: Ht 167.6 cm; Wt 80.3 kg
[2019-10-15] MEDS ORDERED: SODIUM CHLORIDE 0.9% 1,000 ML IV ONE ×2 (15:20→20:14)
[2019-10-15] MEDS ORDERED: PIPERACILLIN/TAZ 3.375G PREMIX 50 ML IV ONE (15:30)
[2019-10-15 16:31] LABS: BG BASE EXCESS -1.7 mmol/L (-2.0-2.0); BG CARBOXYHEMOGLOBIN 0.2 % (0.5-1.5); BG DEOXYHEMOGLOBIN 2.7 % (0.0-5.0); BG FRACTION INSPIRED OXYGEN 21; BG HCO3 ACT 18.7 mmol/L (22.0-26.0); BG METHEMOGLOBIN 0.2 % (0.0-1.5); BG OXYGEN SATURATION 97.3 % (92.0-98.5); BG OXYHEMOGLOBIN 96.9 % (94.0-97.0); BG PH 7.547 (7.350-7.450); BG PO2 88.7 mmHg (75.0-100.0); BG SAMPLE SITE RIGHT RADIAL; BG TOTAL HEMOGLOBIN 13.8 g/dL (12.0-18.0); BG VENT MODE ROOM AIR
[2019-10-15] MEDS ORDERED: ACETAMINOPHEN 650MG SUPP PR ONE (16:45)
[2019-10-15 17:36] LABS: HEMATOCRIT. 43.3 % (42.0-52.0); HEMOGLOBIN. 14.4 g/dL (14.0-18.0); MEAN CORPUSCULAR HEMOGLOBIN 30.8 pg (28.0-32.0); MEAN CORPUSCULAR VOLUME 92.1 fL (80.0-94.0); MEAN PLATELET VOLUME 9.3 fl (7.4-10.4); PLATELET 316 x1000/uL (130-400); RED CELL DISTRIBUTION WIDTH 16.6 % (11.6-14.6)
[2019-10-15 17:44] LABS: CHLORIDE 98 mEq/L (98-107); CLARITY URINE CLEAR (CLEAR); COLOR URINE DARK YELLOW (YELLOW); KETONES URINE NEGATIVE (NEGATIVE); LEUKOCYTE ESTERASE URINE NEGATIVE (NEGATIVE); NITRITE URINE NEGATIVE (NEGATIVE); OCCULT BLOOD URINE NEGATIVE (NEGATIVE); PH URINE 5.5 (4.5-8.0); PROTEIN URINE NEGATIVE (NEGATIVE); SPECIFIC GRAVITY URINE 1.019 (1.005-1.030)
[2019-10-15 17:47] LABS: INR 1.3
[2019-10-15 17:50] LABS: BETA HYDROXYBUTYRATE 0.1 mMol/L (0.0-0.3)
[2019-10-15 17:53] LABS: PLATELET ESTIMATE NORMAL
[2019-10-15] MEDS ORDERED: MAGNESIUM/ALUMINUM HYDROXIDE/SIMETHICONE 30ML UDC PO PRN (22:00)
[2019-10-15] MEDS ORDERED: NA PHOS,M-B/NA PHOS,DI-BA ENEMA 118ML PR PRN (22:00)
[2019-10-15] MEDS ORDERED: CLONIDINE 0.1MG TABLET PO PRN (22:00)
[2019-10-15] MEDS ORDERED: GUAIFENESIN 200MG/10ML SUGAR FREE UDC PO PRN (22:00)
[2019-10-15] MEDS ORDERED: AZITHROMYCIN 500 MG in DEXT 5% WATER 250 ML IV SCH ×2 (22:00→22:45)
[2019-10-15] MEDS ORDERED: DOCUSATE SODIUM 100MG CAPSULE PO PRN (22:00)
[2019-10-15] MEDS ORDERED: ACETAMINOPHEN 650MG/20.3ML UDC GT PRN (22:00)
[2019-10-15] MEDS ORDERED: DEXTROSE 50% WATER 50ML SYRINGE IV PRN (22:15)
[2019-10-15] MEDS ORDERED: INSULIN LISPRO 100 UNITS/ML SUBCUT SCH (22:45)
[2019-10-15] MEDS ORDERED: CEFTRIAXONE 1 G PREMIX 50 ML IV SCH (22:45)
[2019-10-16 05:00] VITALS: BP 101/62
[2019-10-16] MEDS: BLOOD SUGAR DIAGNOSTIC STRIP TEST SCH ×4 (06:40→21:00)
[2019-10-16] MEDS: SODIUM CHLORIDE 0.9% INJ 3ML FLUSH IVF SCH ×3 (06:43→22:44)
[2019-10-16] MEDS: INSULIN LISPRO 100 UNITS/ML SUBCUT SCH ×3 (06:51→18:09)
[2019-10-16 08:00] VITALS: BP 115/52
[2019-10-16] MEDS: ENOXAPARIN 40MG/0.4ML SYR SUBCUT SCH (08:46)
[2019-10-16 12:00] VITALS: BP 107/66
[2019-10-16] MEDS: GLIPIZIDE 5MG TABLET PO SCH (12:41)
[2019-10-16 16:00] VITALS: BP 107/66
[2019-10-16] MEDS ORDERED: VANCOMYCIN 1500MG in DEXTROSE 5% WATER 250ML IV NR (16:00)
[2019-10-16] MEDS: ACETAMINOPHEN 325MG TABLET PO PRN (18:57)
[2019-10-16 20:00] VITALS: BP 104/65
[2019-10-16] MEDS ORDERED: CEFTRIAXONE 1 G PREMIX 50 ML IV SCH (22:15)
[2019-10-16] MEDS: AZITHROMYCIN 250 MG in DEXT 5% WATER 250 ML IV SCH (22:30)
[2019-10-16] MEDS: CEFTRIAXONE 1 G PREMIX 50 ML IV SCH (22:30)
[2019-10-16 23:38] LABS: BASOPHILS % 0.2 % (0.0-2.0); EOSINOPHILS % 0.4 % (0.0-5.0); HEMOGLOBIN. 11.7 g/dL (14.0-18.0); LYMPHOCYTES % 10.1 % (20.0-50.0); MEAN CORPUSCULAR HEMOGLOBIN 31.1 pg (28.0-32.0); MEAN CORPUSCULAR VOLUME 90.6 fL (80.0-94.0); MEAN PLATELET VOLUME 8.8 fl (7.4-10.4); NEUTROPHILS % 80.3 % (40.0-76.0); PLATELET 268 x1000/uL (130-400); RED BLOOD CELL COUNT 3.75 mill/uL (4.7-6.1); RED CELL DISTRIBUTION WIDTH 16.1 % (11.6-14.6)
[2019-10-16 23:42] LABS: CHLORIDE 104 mEq/L (98-107)
[2019-10-16 23:49] LABS: LDL CHOLESTEROL 37 mg/dL (5-100)
[2019-10-16 23:50] LABS: HDL CHOLESTEROL 14 mg/dL (40-59)
[2019-10-17] VITALS: BP 103/69
[2019-10-17] MEDS: INSULIN LISPRO 100 UNITS/ML SUBCUT SCH ×5 (01:22→23:32)
[2019-10-17] MEDS: VANCOMYCIN 1 G PREMIX 200 ML IV SCH ×3 (02:19→18:01)
[2019-10-17 04:00] VITALS: BP 118/64
[2019-10-17] MEDS: BLOOD SUGAR DIAGNOSTIC STRIP TEST SCH ×4 (06:48→21:51)
[2019-10-17] MEDS: SODIUM CHLORIDE 0.9% INJ 3ML FLUSH IVF SCH ×3 (07:06→23:31)
[2019-10-17] MEDS: GLIPIZIDE 5MG TABLET PO SCH (07:06)
[2019-10-17] MEDS ORDERED: POTASSIUM CHLORIDE 20MEQ TABLET SR PO SCH (07:30)
[2019-10-17 08:00] VITALS: BP 111/75
[2019-10-17] MEDS: ENOXAPARIN 40MG/0.4ML SYR SUBCUT SCH (10:17)
[2019-10-17] MEDS: ASCORBIC ACID 500 MG TABLET PO SCH ×2 (11:01→18:01)
[2019-10-17] MEDS: HYDROXYCHLOROQUINE SULFATE 200MG TABLET PO SCH ×2 (11:02→21:51)
[2019-10-17] MEDS: THIAMINE HCL 100MG TABLET PO SCH ×2 (11:03→18:01)
[2019-10-17] MEDS: ZINC SULFATE 220 MG ( 50 ) CAPSULE PO SCH (11:04)
[2019-10-17 12:00] VITALS: BP 103/64
[2019-10-17 20:00] VITALS: BP 111/65
[2019-10-17] MEDS: AZITHROMYCIN 250 MG in DEXT 5% WATER 250 ML IV SCH (21:51)
[2019-10-17] MEDS: ACETAMINOPHEN 325MG TABLET PO PRN (21:53)
[2019-10-17] MEDS: CEFTRIAXONE 1 G PREMIX 50 ML IV SCH (23:31)
[2019-10-18] VITALS: BP 101/63
[2019-10-18] MEDS: VANCOMYCIN 1 G PREMIX 200 ML IV SCH ×4 (00:34→23:36)
[2019-10-18 04:00] VITALS: BP 106/69
[2019-10-18] MEDS: GLIPIZIDE 5MG TABLET PO SCH (06:35)
[2019-10-18] MEDS: SODIUM CHLORIDE 0.9% INJ 3ML FLUSH IVF SCH ×3 (06:35→21:30)
[2019-10-18] MEDS: BLOOD SUGAR DIAGNOSTIC STRIP TEST SCH ×4 (06:40→21:30)
[2019-10-18 08:00] VITALS: BP 113/70
[2019-10-18] MEDS: INSULIN LISPRO 100 UNITS/ML SUBCUT SCH ×4 (08:45→21:55)
[2019-10-18] MEDS: ENOXAPARIN 40MG/0.4ML SYR SUBCUT SCH (09:14)
[2019-10-18] MEDS: THIAMINE HCL 100MG TABLET PO SCH ×2 (09:15→17:08)
[2019-10-18] MEDS: HYDROXYCHLOROQUINE SULFATE 200MG TABLET PO SCH ×2 (09:15→21:30)
[2019-10-18] MEDS: ZINC SULFATE 220 MG ( 50 ) CAPSULE PO SCH (09:15)
[2019-10-18] MEDS: ASCORBIC ACID 500 MG TABLET PO SCH ×2 (09:15→17:08)
[2019-10-18 12:00] VITALS: BP 122/68
[2019-10-18 12:06] LABS: BASOPHILS % 0.2 % (0.0-2.0); EOSINOPHILS % 1.2 % (0.0-5.0); HEMATOCRIT. 35.5 % (42.0-52.0); LYMPHOCYTES % 11.4 % (20.0-50.0); MEAN CORPUSCULAR HEMOGLOBIN 30.4 pg (28.0-32.0); MEAN CORPUSCULAR VOLUME 90.3 fL (80.0-94.0); MEAN PLATELET VOLUME 8.7 fl (7.4-10.4); MONOCYTES % 6.9 % (2.0-8.0); NEUTROPHILS % 80.3 % (40.0-76.0); PLATELET 272 x1000/uL (130-400); RED BLOOD CELL COUNT 3.93 mill/uL (4.7-6.1); RED CELL DISTRIBUTION WIDTH 16.2 % (11.6-14.6)
[2019-10-18 12:14] LABS: CHLORIDE 99 mEq/L (98-107)
[2019-10-18 12:26] LABS: PHOSPHORUS 2.7 mg/dL (2.5-4.9)
[2019-10-18] MEDS ORDERED: POTASSIUM CHLORIDE 20MEQ TABLET SR PO NR (13:45)
[2019-10-18 16:00] VITALS: BP 104/68
[2019-10-18] MEDS ORDERED: CEFTRIAXONE 2 G PREMIX 50 ML IV SCH (17:00)
[2019-10-18] MEDS ORDERED: CEFTRIAXONE 2 G in DEXTROSE 5% WATER 50 ML IV SCH (18:30)
[2019-10-18 20:00] VITALS: BP 107/70
[2019-10-18] MEDS: AZITHROMYCIN 250 MG in DEXT 5% WATER 250 ML IV SCH (21:29)
[2019-10-19] VITALS: BP 110/69
[2019-10-19 04:00] VITALS: BP 122/61
[2019-10-19] MEDS: SODIUM CHLORIDE 0.9% INJ 3ML FLUSH IVF SCH ×3 (05:34→21:10)
[2019-10-19] MEDS: CEFAZOLIN 2,000 MG in DEXT 5% WATER 100 ML IV SCH ×3 (05:34→21:10)
[2019-10-19] MEDS: BLOOD SUGAR DIAGNOSTIC STRIP TEST SCH ×4 (06:36→21:29)
[2019-10-19] MEDS: GLIPIZIDE 5MG TABLET PO SCH (06:41)
[2019-10-19] MEDS: INSULIN LISPRO 100 UNITS/ML SUBCUT SCH ×4 (06:43→22:25)
[2019-10-19 08:00] VITALS: BP 119/64
[2019-10-19] MEDS: ZINC SULFATE 220 MG ( 50 ) CAPSULE PO SCH (09:30)
[2019-10-19] MEDS: ENOXAPARIN 40MG/0.4ML SYR SUBCUT SCH (09:30)
[2019-10-19] MEDS: THIAMINE HCL 100MG TABLET PO SCH ×2 (09:30→18:57)
[2019-10-19] MEDS: HYDROXYCHLOROQUINE SULFATE 200MG TABLET PO SCH ×2 (09:30→21:10)
[2019-10-19] MEDS: ASCORBIC ACID 500 MG TABLET PO SCH ×2 (09:30→18:58)
[2019-10-19] MEDS ORDERED: LIDOCAINE HCL 1% 20ML VIAL (Pyxis) INJ ONE (11:03)
[2019-10-19 12:00] VITALS: BP 131/74
[2019-10-19 16:00] VITALS: BP 134/68
[2019-10-19] MEDS ORDERED: VANCOMYCIN 1 G PREMIX 200 ML IV SCH (17:00)
[2019-10-19] MEDS: VANCOMYCIN 1 G PREMIX 200 ML IV SCH (18:57)
[2019-10-19 20:00] VITALS: BP 105/56
[2019-10-20] VITALS: BP 120/74
[2019-10-20] MEDS: VANCOMYCIN 1 G PREMIX 200 ML IV SCH ×3 (01:21→18:19)
[2019-10-20 04:00] VITALS: BP 108/61
[2019-10-20] MEDS: GLIPIZIDE 5MG TABLET PO SCH (06:18)
[2019-10-20] MEDS: INSULIN LISPRO 100 UNITS/ML SUBCUT SCH ×4 (06:18→21:16)
[2019-10-20] MEDS: CEFAZOLIN 2,000 MG in DEXT 5% WATER 100 ML IV SCH ×3 (06:18→21:16)
[2019-10-20] MEDS: SODIUM CHLORIDE 0.9% INJ 3ML FLUSH IVF SCH ×3 (06:18→21:16)
[2019-10-20] MEDS: BLOOD SUGAR DIAGNOSTIC STRIP TEST SCH ×4 (06:18→20:23)
[2019-10-20 08:00] VITALS: BP 113/70
[2019-10-20] MEDS: ENOXAPARIN 40MG/0.4ML SYR SUBCUT SCH (08:31)
[2019-10-20] MEDS: THIAMINE HCL 100MG TABLET PO SCH ×2 (08:31→18:19)
[2019-10-20] MEDS: ASCORBIC ACID 500 MG TABLET PO SCH ×2 (08:32→18:19)
[2019-10-20] MEDS: ZINC SULFATE 220 MG ( 50 ) CAPSULE PO SCH (08:32)
[2019-10-20] MEDS: HYDROXYCHLOROQUINE SULFATE 200MG TABLET PO SCH ×2 (08:40→21:16)
[2019-10-20 12:00] VITALS: BP 130/68
[2019-10-20 16:00] VITALS: BP 107/57
[2019-10-20 20:00] VITALS: BP 126/78
[2019-10-21] VITALS: BP 120/71
[2019-10-21] MEDS: VANCOMYCIN 1 G PREMIX 200 ML IV SCH ×2 (00:11→09:33)
[2019-10-21 04:00] VITALS: BP 102/64
[2019-10-21] MEDS: CEFAZOLIN 2,000 MG in DEXT 5% WATER 100 ML IV SCH ×3 (05:33→21:10)
[2019-10-21] MEDS: GLIPIZIDE 5MG TABLET PO SCH (06:04)
[2019-10-21] MEDS: INSULIN LISPRO 100 UNITS/ML SUBCUT SCH ×4 (06:04→20:25)
[2019-10-21] MEDS: BLOOD SUGAR DIAGNOSTIC STRIP TEST SCH ×4 (06:04→20:25)
[2019-10-21] MEDS: SODIUM CHLORIDE 0.9% INJ 3ML FLUSH IVF SCH ×3 (06:04→21:10)
[2019-10-21 07:41] LABS: CHLORIDE 97 mEq/L (98-107)
[2019-10-21 08:00] VITALS: BP 104/65
[2019-10-21] MEDS: THIAMINE HCL 100MG TABLET PO SCH ×3 (09:00→17:00)
[2019-10-21] MEDS: ASCORBIC ACID 500 MG TABLET PO SCH ×3 (09:00→17:00)
[2019-10-21] MEDS: ENOXAPARIN 40MG/0.4ML SYR SUBCUT SCH (09:00)
[2019-10-21] MEDS: HYDROXYCHLOROQUINE SULFATE 200MG TABLET PO SCH ×3 (09:00→20:25)
[2019-10-21] MEDS: ZINC SULFATE 220 MG ( 50 ) CAPSULE PO SCH ×2 (09:00→09:32)
[2019-10-21] MEDS ORDERED: MAGNESIUM 2 G PREMIX 50 ML IV SCH (11:00)
[2019-10-21 12:10] VITALS: BP 103/61
[2019-10-21] MEDS ORDERED: BISACODYL 5MG TABLET PO PRN (14:00)
[2019-10-21 16:07] VITALS: BP 110/59
[2019-10-21] MEDS: DOCUSATE SODIUM 100MG CAPSULE PO SCH (17:00)
[2019-10-21 20:00] VITALS: BP 87/54
[2019-10-21] MEDS ORDERED: SODIUM CHLORIDE 0.9% 500 ML IV ONE (20:15)
[2019-10-21] MEDS: VANCOMYCIN 1250MG in DEXTROSE 5% WATER 250ML IV SCH (20:25)
[2019-10-22] VITALS: BP 92/55
[2019-10-22 04:00] VITALS: BP 98/55
[2019-10-22] MEDS: GLIPIZIDE 5MG TABLET PO SCH (06:08)
[2019-10-22] MEDS: CEFAZOLIN 2,000 MG in DEXT 5% WATER 100 ML IV SCH ×3 (06:08→23:54)
[2019-10-22] MEDS: SODIUM CHLORIDE 0.9% INJ 3ML FLUSH IVF SCH ×2 (06:08→22:00)
[2019-10-22] MEDS: BLOOD SUGAR DIAGNOSTIC STRIP TEST SCH ×4 (06:27→21:00)
[2019-10-22] MEDS: INSULIN LISPRO 100 UNITS/ML SUBCUT SCH ×4 (06:27→21:00)
[2019-10-22 07:42] LABS: CHLORIDE 99 mEq/L (98-107)
[2019-10-22 07:46] LABS: BASOPHILS % 0.3 % (0.0-2.0); EOSINOPHILS % 1.9 % (0.0-5.0); HEMATOCRIT. 30.9 % (42.0-52.0); HEMOGLOBIN. 10.7 g/dL (14.0-18.0); LYMPHOCYTES % 11.1 % (20.0-50.0); MEAN CORPUSCULAR HEMOGLOBIN 31.1 pg (28.0-32.0); MEAN CORPUSCULAR VOLUME 90.1 fL (80.0-94.0); MEAN PLATELET VOLUME 8.1 fl (7.4-10.4); MONOCYTES % 5.4 % (2.0-8.0); NEUTROPHILS % 81.3 % (40.0-76.0); PLATELET 348 x1000/uL (130-400); RED BLOOD CELL COUNT 3.43 mill/uL (4.7-6.1); RED CELL DISTRIBUTION WIDTH 15.9 % (11.6-14.6)
[2019-10-22 08:30] VITALS: BP 118/69
[2019-10-22] MEDS: ZINC SULFATE 220 MG ( 50 ) CAPSULE PO SCH (08:44)
[2019-10-22] MEDS: VANCOMYCIN 1250MG in DEXTROSE 5% WATER 250ML IV SCH ×2 (08:44→21:46)
[2019-10-22] MEDS: ASCORBIC ACID 500 MG TABLET PO SCH ×2 (08:44→16:22)
[2019-10-22] MEDS: THIAMINE HCL 100MG TABLET PO SCH ×2 (08:45→16:23)
[2019-10-22] MEDS: DOCUSATE SODIUM 100MG CAPSULE PO SCH ×2 (08:45→16:23)
[2019-10-22] MEDS: ENOXAPARIN 40MG/0.4ML SYR SUBCUT SCH (08:45)
[2019-10-22] MEDS: HYDROXYCHLOROQUINE SULFATE 200MG TABLET PO SCH (08:45)
[2019-10-22 12:30] VITALS: BP 103/57
[2019-10-22 16:00] VITALS: BP 96/53
[2019-10-22 20:00] VITALS: BP 108/63
[2019-10-23] VITALS: BP 101/57
[2019-10-23 04:29] VITALS: BP 100/57
[2019-10-23] MEDS: CEFAZOLIN 2,000 MG in DEXT 5% WATER 100 ML IV SCH ×3 (05:01→21:05)
[2019-10-23] MEDS: SODIUM CHLORIDE 0.9% INJ 3ML FLUSH IVF SCH ×3 (05:01→21:07)
[2019-10-23] MEDS: BLOOD SUGAR DIAGNOSTIC STRIP TEST SCH ×4 (05:54→21:06)
[2019-10-23] MEDS: GLIPIZIDE 5MG TABLET PO SCH (06:40)
[2019-10-23] MEDS: INSULIN LISPRO 100 UNITS/ML SUBCUT SCH ×4 (06:48→21:00)
[2019-10-23 08:00] VITALS: BP 100/50
[2019-10-23] MEDS: ZINC SULFATE 220 MG ( 50 ) CAPSULE PO SCH ×2 (09:00→09:19)
[2019-10-23] MEDS: ENOXAPARIN 40MG/0.4ML SYR SUBCUT SCH (09:00)
[2019-10-23] MEDS: THIAMINE HCL 100MG TABLET PO SCH ×2 (09:00→09:19)
[2019-10-23] MEDS: ASCORBIC ACID 500 MG TABLET PO SCH ×2 (09:00→09:19)
[2019-10-23] MEDS: VANCOMYCIN 1250MG in DEXTROSE 5% WATER 250ML IV SCH ×2 (09:18→21:05)
[2019-10-23] MEDS: DOCUSATE SODIUM 100MG CAPSULE PO SCH ×2 (09:19→17:30)
[2019-10-23 12:00] VITALS: BP 99/53
[2019-10-23 16:00] VITALS: BP 103/57
[2019-10-23 20:00] VITALS: BP 100/52
[2019-10-24] VITALS: BP 105/55
[2019-10-24 05:30] VITALS: BP 107/62
[2019-10-24] MEDS: SODIUM CHLORIDE 0.9% INJ 3ML FLUSH IVF SCH ×3 (06:21→22:08)
[2019-10-24] MEDS: CEFAZOLIN 2,000 MG in DEXT 5% WATER 100 ML IV SCH (06:21)
[2019-10-24] MEDS: BLOOD SUGAR DIAGNOSTIC STRIP TEST SCH ×4 (06:21→21:00)
[2019-10-24] MEDS: GLIPIZIDE 5MG TABLET PO SCH (06:21)
[2019-10-24] MEDS: INSULIN LISPRO 100 UNITS/ML SUBCUT SCH ×4 (07:10→21:00)
[2019-10-24] MEDS: VANCOMYCIN 1250MG in DEXTROSE 5% WATER 250ML IV SCH ×2 (08:58→22:08)
[2019-10-24] MEDS: ZINC SULFATE 220 MG ( 50 ) CAPSULE PO SCH ×2 (08:58→09:00)
[2019-10-24] MEDS: ENOXAPARIN 40MG/0.4ML SYR SUBCUT SCH ×2 (08:58→09:00)
[2019-10-24] MEDS: ACETAMINOPHEN 325MG TABLET PO PRN (08:58)
[2019-10-24] MEDS: DOCUSATE SODIUM 100MG CAPSULE PO SCH ×3 (08:58→16:04)
[2019-10-24 09:00] VITALS: BP 121/92
[2019-10-24 12:00] VITALS: BP 128/75
[2019-10-24 16:00] VITALS: BP 110/64
[2019-10-24 20:00] VITALS: BP 90/44
[2019-10-25] VITALS (7 sets, daily range): BP systolic 94–149; BP diastolic 49–79
[2019-10-25] MEDS: CEFAZOLIN 2,000 MG in DEXT 5% WATER 100 ML IV SCH ×3 (05:21→20:21)
[2019-10-25] MEDS ORDERED: VANCOMYCIN 1 G PREMIX 200 ML IV SCH (06:00)
[2019-10-25] MEDS: SODIUM CHLORIDE 0.9% INJ 3ML FLUSH IVF SCH ×3 (06:36→21:52)
[2019-10-25] MEDS: INSULIN LISPRO 100 UNITS/ML SUBCUT SCH ×4 (06:36→21:49)
[2019-10-25] MEDS: BLOOD SUGAR DIAGNOSTIC STRIP TEST SCH ×4 (06:36→21:41)
[2019-10-25] MEDS: GLIPIZIDE 5MG TABLET PO SCH (06:40)
[2019-10-25] MEDS: ENOXAPARIN 40MG/0.4ML SYR SUBCUT SCH (09:00)
[2019-10-25] MEDS: DOCUSATE SODIUM 100MG CAPSULE PO SCH ×2 (09:00→17:00)
[2019-10-25] MEDS: ZINC SULFATE 220 MG ( 50 ) CAPSULE PO SCH (09:00)
[2019-10-25] MEDS: VANCOMYCIN 1250MG in DEXTROSE 5% WATER 250ML IV SCH (21:52)
[2019-10-26] VITALS: BP 98/54
[2019-10-26 04:00] VITALS: BP 93/50
[2019-10-26] MEDS: CEFAZOLIN 2,000 MG in DEXT 5% WATER 100 ML IV SCH ×3 (04:05→20:57)
[2019-10-26] MEDS: SODIUM CHLORIDE 0.9% INJ 3ML FLUSH IVF SCH ×3 (05:26→21:10)
[2019-10-26] MEDS: INSULIN LISPRO 100 UNITS/ML SUBCUT SCH ×4 (06:26→21:00)
[2019-10-26] MEDS: BLOOD SUGAR DIAGNOSTIC STRIP TEST SCH ×4 (06:26→21:01)
[2019-10-26] MEDS: GLIPIZIDE 5MG TABLET PO SCH ×2 (06:30→06:40)
[2019-10-26 07:52] LABS: BASOPHILS % 0.8 % (0.0-2.0); EOSINOPHILS % 2.5 % (0.0-5.0); HEMOGLOBIN. 10.8 g/dL (14.0-18.0); LYMPHOCYTES % 18.5 % (20.0-50.0); MEAN CORPUSCULAR HEMOGLOBIN 31.7 pg (28.0-32.0); MEAN CORPUSCULAR VOLUME 90.6 fL (80.0-94.0); MEAN PLATELET VOLUME 7.1 fl (7.4-10.4); MONOCYTES % 7.9 % (2.0-8.0); NEUTROPHILS % 70.3 % (40.0-76.0); PLATELET 417 x1000/uL (130-400); RED BLOOD CELL COUNT 3.42 mill/uL (4.7-6.1); RED CELL DISTRIBUTION WIDTH 15.9 % (11.6-14.6)
[2019-10-26 08:00] VITALS: BP 92/53
[2019-10-26 08:04] LABS: CHLORIDE 100 mEq/L (98-107)
[2019-10-26] MEDS: ZINC SULFATE 220 MG ( 50 ) CAPSULE PO SCH (09:00)
[2019-10-26] MEDS: DOCUSATE SODIUM 100MG CAPSULE PO SCH ×2 (09:00→17:00)
[2019-10-26] MEDS: ENOXAPARIN 40MG/0.4ML SYR SUBCUT SCH (09:00)
[2019-10-26] MEDS: VANCOMYCIN 1250MG in DEXTROSE 5% WATER 250ML IV SCH ×2 (09:55→21:01)
[2019-10-26 12:57] VITALS: BP 97/48
[2019-10-26 17:08] VITALS: BP 88/51
[2019-10-26 20:00] VITALS: BP 100/58
[2019-10-27] VITALS: BP 106/61
[2019-10-27 04:00] VITALS: BP 109/65
[2019-10-27] MEDS: CEFAZOLIN 2,000 MG in DEXT 5% WATER 100 ML IV SCH ×3 (04:26→21:27)
[2019-10-27] MEDS: GLIPIZIDE 5MG TABLET PO SCH (06:40)
[2019-10-27] MEDS: BLOOD SUGAR DIAGNOSTIC STRIP TEST SCH ×4 (06:52→21:00)
[2019-10-27] MEDS: SODIUM CHLORIDE 0.9% INJ 3ML FLUSH IVF SCH ×3 (06:53→22:33)
[2019-10-27] MEDS: INSULIN LISPRO 100 UNITS/ML SUBCUT SCH ×4 (06:53→21:00)
[2019-10-27] MEDS: DOCUSATE SODIUM 100MG CAPSULE PO SCH ×3 (09:00→16:44)
[2019-10-27] MEDS: ENOXAPARIN 40MG/0.4ML SYR SUBCUT SCH ×2 (09:00→10:22)
[2019-10-27] MEDS: ZINC SULFATE 220 MG ( 50 ) CAPSULE PO SCH ×2 (09:00→10:21)
[2019-10-27 09:29] VITALS: BP 117/74
[2019-10-27] MEDS: VANCOMYCIN 1250MG in DEXTROSE 5% WATER 250ML IV SCH ×2 (10:21→21:28)
[2019-10-27 11:56] VITALS: BP 90/51
[2019-10-27 17:34] VITALS: BP 94/55
[2019-10-27 20:00] VITALS: BP 99/56
[2019-10-28] VITALS: BP 162/77
[2019-10-28 04:00] VITALS: BP 97/57
[2019-10-28] MEDS: SODIUM CHLORIDE 0.9% INJ 3ML FLUSH IVF SCH ×3 (06:11→21:00)
[2019-10-28] MEDS: GLIPIZIDE 5MG TABLET PO SCH (06:12)
[2019-10-28] MEDS: BLOOD SUGAR DIAGNOSTIC STRIP TEST SCH ×4 (06:12→21:00)
[2019-10-28] MEDS: INSULIN LISPRO 100 UNITS/ML SUBCUT SCH ×4 (06:12→20:59)
[2019-10-28 08:00] VITALS: BP 121/68
[2019-10-28] MEDS: DOCUSATE SODIUM 100MG CAPSULE PO SCH ×2 (09:00→17:00)
[2019-10-28] MEDS: ZINC SULFATE 220 MG ( 50 ) CAPSULE PO SCH ×2 (09:00→09:23)
[2019-10-28] MEDS: ENOXAPARIN 40MG/0.4ML SYR SUBCUT SCH ×2 (09:00→09:23)
[2019-10-28] MEDS: VANCOMYCIN 1250MG in DEXTROSE 5% WATER 250ML IV SCH ×2 (09:23→20:52)
[2019-10-28 12:00] VITALS: BP 120/60
[2019-10-28 16:00] VITALS: BP 118/70
[2019-10-28 20:00] VITALS: BP 106/56
[2019-10-29] VITALS: BP 114/70
[2019-10-29 04:00] VITALS: BP 99/55
[2019-10-29] MEDS: GLIPIZIDE 5MG TABLET PO SCH (04:24)
[2019-10-29] MEDS: SODIUM CHLORIDE 0.9% INJ 3ML FLUSH IVF SCH ×3 (04:46→22:00)
[2019-10-29] MEDS: BLOOD SUGAR DIAGNOSTIC STRIP TEST SCH ×4 (04:46→21:00)
[2019-10-29 08:00] VITALS: BP 92/57
[2019-10-29] MEDS: DOCUSATE SODIUM 100MG CAPSULE PO SCH ×2 (08:10→16:53)
[2019-10-29] MEDS: ZINC SULFATE 220 MG ( 50 ) CAPSULE PO SCH (08:10)
[2019-10-29] MEDS: VANCOMYCIN 1250MG in DEXTROSE 5% WATER 250ML IV SCH ×4 (08:10→21:15)
[2019-10-29] MEDS: ENOXAPARIN 40MG/0.4ML SYR SUBCUT SCH (08:10)
[2019-10-29] MEDS: INSULIN LISPRO 100 UNITS/ML SUBCUT SCH ×4 (08:11→21:00)
[2019-10-29 12:00] VITALS: BP 112/66
[2019-10-29 16:00] VITALS: BP 102/59
[2019-10-29] MEDS ORDERED: IPRATROPIUM/ALBUTEROL 0.5-3(2.5)MG/3ML NEB HHN PRN (16:15)
[2019-10-29 20:00] VITALS: BP 104/61
[2019-10-30] VITALS: BP 111/66
[2019-10-30] MEDS: ACETAMINOPHEN 325MG TABLET PO PRN (02:39)
[2019-10-30] MEDS: SODIUM CHLORIDE 0.9% INJ 3ML FLUSH IVF SCH ×3 (06:48→22:52)
[2019-10-30] MEDS: GLIPIZIDE 5MG TABLET PO SCH (07:17)
[2019-10-30] MEDS: BLOOD SUGAR DIAGNOSTIC STRIP TEST SCH ×4 (07:20→21:26)
[2019-10-30] MEDS: INSULIN LISPRO 100 UNITS/ML SUBCUT SCH ×4 (07:23→21:00)
[2019-10-30] MEDS: ZINC SULFATE 220 MG ( 50 ) CAPSULE PO SCH ×2 (09:00→10:42)
[2019-10-30] MEDS: DOCUSATE SODIUM 100MG CAPSULE PO SCH ×3 (09:00→17:00)
[2019-10-30 10:30] VITALS: BP 106/63
[2019-10-30] MEDS: ENOXAPARIN 40MG/0.4ML SYR SUBCUT SCH (10:43)
[2019-10-30 12:00] VITALS: BP 86/49
[2019-10-30] MEDS: SODIUM CHLORIDE 45ML SPRAY NS SCH ×2 (13:00→18:40)
[2019-10-30] MEDS: VANCOMYCIN 1250MG in DEXTROSE 5% WATER 250ML IV SCH ×2 (14:59→20:30)
[2019-10-30 16:00] VITALS: BP 93/57
[2019-10-30 20:00] VITALS: BP 98/57
[2019-10-31 00:42] VITALS: BP 106/61
[2019-10-31] MEDS: SODIUM CHLORIDE 45ML SPRAY NS SCH ×4 (01:00→18:17)
[2019-10-31 04:00] VITALS: BP 98/56
[2019-10-31 06:00] LABS: CHLORIDE 100 mEq/L (98-107)
[2019-10-31] MEDS: SODIUM CHLORIDE 0.9% INJ 3ML FLUSH IVF SCH ×3 (06:00→21:50)
[2019-10-31 08:00] VITALS: BP 98/51
[2019-10-31] MEDS: INSULIN LISPRO 100 UNITS/ML SUBCUT SCH ×4 (08:10→20:58)
[2019-10-31] MEDS: BLOOD SUGAR DIAGNOSTIC STRIP TEST SCH ×4 (08:25→20:58)
[2019-10-31] MEDS: ZINC SULFATE 220 MG ( 50 ) CAPSULE PO SCH (10:03)
[2019-10-31] MEDS: GLIPIZIDE 5MG TABLET PO SCH (10:03)
[2019-10-31] MEDS: VANCOMYCIN 1250MG in DEXTROSE 5% WATER 250ML IV SCH ×2 (10:03→21:52)
[2019-10-31] MEDS: DOCUSATE SODIUM 100MG CAPSULE PO SCH ×2 (10:03→18:16)
[2019-10-31] MEDS: ENOXAPARIN 40MG/0.4ML SYR SUBCUT SCH (10:04)
[2019-10-31 12:00] VITALS: BP 101/58
[2019-10-31 16:00] VITALS: BP 94/59
[2019-10-31 20:00] VITALS: BP 105/61
[2019-11-01] VITALS: BP 102/61
[2019-11-01] MEDS: SODIUM CHLORIDE 45ML SPRAY NS SCH ×4 (00:59→18:13)
[2019-11-01] MEDS: SODIUM CHLORIDE 0.9% INJ 3ML FLUSH IVF SCH ×3 (04:12→20:41)
[2019-11-01 06:23] VITALS: BP 109/67
[2019-11-01] MEDS: BLOOD SUGAR DIAGNOSTIC STRIP TEST SCH ×4 (07:51→20:39)
[2019-11-01] MEDS: INSULIN LISPRO 100 UNITS/ML SUBCUT SCH ×4 (07:51→20:40)
[2019-11-01 08:13] VITALS: BP 100/64
[2019-11-01] MEDS: DOCUSATE SODIUM 100MG CAPSULE PO SCH ×2 (08:49→16:21)
[2019-11-01] MEDS: GLIPIZIDE 5MG TABLET PO SCH (08:54)
[2019-11-01] MEDS: ZINC SULFATE 220 MG ( 50 ) CAPSULE PO SCH (08:54)
[2019-11-01] MEDS: VANCOMYCIN 1250MG in DEXTROSE 5% WATER 250ML IV SCH ×2 (08:54→20:30)
[2019-11-01] MEDS: ENOXAPARIN 40MG/0.4ML SYR SUBCUT SCH (08:54)
[2019-11-01 12:09] VITALS: BP 103/60
[2019-11-01 16:18] VITALS: BP 101/62
[2019-11-01 20:00] VITALS: BP 103/100
[2019-11-02] MEDS: SODIUM CHLORIDE 45ML SPRAY NS SCH ×3 (00:20→12:14)
[2019-11-02 00:52] VITALS: BP 109/65
[2019-11-02 04:00] VITALS: BP 93/57
[2019-11-02] MEDS: SODIUM CHLORIDE 0.9% INJ 3ML FLUSH IVF SCH ×3 (06:07→21:31)
[2019-11-02] MEDS: BLOOD SUGAR DIAGNOSTIC STRIP TEST SCH ×4 (06:15→21:42)
[2019-11-02 08:00] VITALS: BP 100/62
[2019-11-02] MEDS: INSULIN LISPRO 100 UNITS/ML SUBCUT SCH ×4 (08:10→21:00)
[2019-11-02] MEDS: DOCUSATE SODIUM 100MG CAPSULE PO SCH ×2 (09:00→16:12)
[2019-11-02] MEDS: GLIPIZIDE 5MG TABLET PO SCH (09:43)
[2019-11-02] MEDS: ZINC SULFATE 220 MG ( 50 ) CAPSULE PO SCH (09:43)
[2019-11-02] MEDS: ENOXAPARIN 40MG/0.4ML SYR SUBCUT SCH (09:44)
[2019-11-02] MEDS: VANCOMYCIN 1250MG in DEXTROSE 5% WATER 250ML IV SCH ×2 (09:56→21:31)
[2019-11-02 12:30] VITALS: BP 103/54
[2019-11-02 16:00] VITALS: BP 113/65
[2019-11-02 20:50] VITALS: BP 105/63
[2019-11-03 00:32] VITALS: BP 105/56
[2019-11-03] MEDS: SODIUM CHLORIDE 45ML SPRAY NS SCH ×4 (01:00→18:06)
[2019-11-03 04:54] VITALS: BP 103/63
[2019-11-03] MEDS: SODIUM CHLORIDE 0.9% INJ 3ML FLUSH IVF SCH ×3 (06:02→22:02)
[2019-11-03] MEDS: BLOOD SUGAR DIAGNOSTIC STRIP TEST SCH ×4 (06:02→21:43)
[2019-11-03] MEDS: INSULIN LISPRO 100 UNITS/ML SUBCUT SCH ×4 (07:33→22:13)
[2019-11-03 08:00] VITALS: BP 100/56
[2019-11-03] MEDS: DOCUSATE SODIUM 100MG CAPSULE PO SCH ×2 (09:00→16:09)
[2019-11-03] MEDS: GLIPIZIDE 5MG TABLET PO SCH (09:20)
[2019-11-03] MEDS: ENOXAPARIN 40MG/0.4ML SYR SUBCUT SCH (09:20)
[2019-11-03] MEDS: ZINC SULFATE 220 MG ( 50 ) CAPSULE PO SCH (09:20)
[2019-11-03] MEDS: VANCOMYCIN 1250MG in DEXTROSE 5% WATER 250ML IV SCH ×2 (09:20→22:18)
[2019-11-03 12:00] VITALS: BP 119/60
[2019-11-03] MEDS: LORAZEPAM 2MG/ML CPJ IV PRN (13:15)
[2019-11-03] MEDS ORDERED: HALOPERIDOL 0.5MG TABLET PO PRN (14:00)
[2019-11-03 16:00] VITALS: BP 110/61
[2019-11-03 20:00] VITALS: BP 100/59
[2019-11-04] VITALS: BP 100/51
[2019-11-04] MEDS: SODIUM CHLORIDE 45ML SPRAY NS SCH ×4 (01:00→17:15)
[2019-11-04 04:00] VITALS: BP 110/67
[2019-11-04] MEDS: SODIUM CHLORIDE 0.9% INJ 3ML FLUSH IVF SCH ×3 (06:57→22:00)
[2019-11-04] MEDS: GLIPIZIDE 5MG TABLET PO SCH (06:57)
[2019-11-04] MEDS: BLOOD SUGAR DIAGNOSTIC STRIP TEST SCH ×4 (06:57→20:58)
[2019-11-04] MEDS: INSULIN LISPRO 100 UNITS/ML SUBCUT SCH ×4 (07:24→21:05)
[2019-11-04 07:55] LABS: CHLORIDE 100 mEq/L (98-107)
[2019-11-04 08:00] VITALS: BP 107/61
[2019-11-04] MEDS: ENOXAPARIN 40MG/0.4ML SYR SUBCUT SCH (09:15)
[2019-11-04] MEDS: DOCUSATE SODIUM 100MG CAPSULE PO SCH ×2 (09:15→17:00)
[2019-11-04] MEDS: ZINC SULFATE 220 MG ( 50 ) CAPSULE PO SCH (09:15)
[2019-11-04] MEDS: VANCOMYCIN 1250MG in DEXTROSE 5% WATER 250ML IV SCH (09:15)
[2019-11-04 12:00] VITALS: BP 100/54
[2019-11-04 16:00] VITALS: BP 110/53
[2019-11-04 20:00] VITALS: BP 114/67
[2019-11-04] MEDS: HYDROCODONE/ACETAMINOPHEN 5/325MG TABLET PO PRN (22:23)
[2019-11-04] MEDS ORDERED: VANCOMYCIN 1 G PREMIX 200 ML IV SCH (23:00)
[2019-11-05] VITALS: BP 136/61
[2019-11-05] MEDS: SODIUM CHLORIDE 45ML SPRAY NS SCH ×5 (01:00→18:21)
[2019-11-05] MEDS: ACETAMINOPHEN 325MG TABLET PO PRN ×3 (01:19→21:17)
[2019-11-05 04:00] VITALS: BP 103/45
[2019-11-05] MEDS: SODIUM CHLORIDE 0.9% INJ 3ML FLUSH IVF SCH ×3 (06:00→21:16)
[2019-11-05] MEDS: INSULIN LISPRO 100 UNITS/ML SUBCUT SCH ×4 (07:00→21:00)
[2019-11-05] MEDS: BLOOD SUGAR DIAGNOSTIC STRIP TEST SCH ×4 (07:00→22:20)
[2019-11-05 08:00] VITALS: BP 113/57
[2019-11-05] MEDS: DOCUSATE SODIUM 100MG CAPSULE PO SCH ×2 (09:41→18:21)
[2019-11-05] MEDS: GLIPIZIDE 5MG TABLET PO SCH (09:41)
[2019-11-05] MEDS: ENOXAPARIN 40MG/0.4ML SYR SUBCUT SCH (09:41)
[2019-11-05] MEDS: ZINC SULFATE 220 MG ( 50 ) CAPSULE PO SCH (09:41)
[2019-11-05 12:00] VITALS: BP 135/99
[2019-11-05] MEDS: VANCOMYCIN 1 G PREMIX 200 ML IV SCH (14:40)
[2019-11-05 16:00] VITALS: BP 99/58
[2019-11-05] MEDS ORDERED: ONDANSETRON HCL 4MG/2ML INJ IV PRN (17:15)
[2019-11-05 20:00] VITALS: BP 92/48
[2019-11-06] VITALS: BP 90/46
[2019-11-06] MEDS: VANCOMYCIN 1 G PREMIX 200 ML IV SCH ×2 (01:06→12:28)
[2019-11-06] MEDS: ACETAMINOPHEN 325MG TABLET PO PRN ×3 (01:07→17:16)
[2019-11-06] MEDS: SODIUM CHLORIDE 45ML SPRAY NS SCH ×4 (01:07→20:27)
[2019-11-06 03:16] LABS: BASOPHILS % 0.6 % (0.0-2.0); EOSINOPHILS % 0.1 % (0.0-5.0); HEMATOCRIT. 27.9 % (42.0-52.0); HEMOGLOBIN. 9.6 g/dL (14.0-18.0); LYMPHOCYTES % 17.4 % (20.0-50.0); MEAN CORPUSCULAR VOLUME 90.3 fL (80.0-94.0); MONOCYTES % 8.8 % (2.0-8.0); NEUTROPHILS % 73.1 % (40.0-76.0); PLATELET 402 x1000/uL (130-400); RED BLOOD CELL COUNT 3.09 mill/uL (4.7-6.1); RED CELL DISTRIBUTION WIDTH 16.8 % (11.6-14.6)
[2019-11-06 03:28] LABS: CHLORIDE 100 mEq/L (98-107)
[2019-11-06 04:00] VITALS: BP 101/61
[2019-11-06] MEDS: SODIUM CHLORIDE 0.9% INJ 3ML FLUSH IVF SCH ×3 (06:15→20:27)
[2019-11-06] MEDS: BLOOD SUGAR DIAGNOSTIC STRIP TEST SCH ×4 (06:17→20:27)
[2019-11-06 08:00] VITALS: BP 116/71
[2019-11-06] MEDS: INSULIN LISPRO 100 UNITS/ML SUBCUT SCH ×4 (08:10→20:32)
[2019-11-06] MEDS: ZINC SULFATE 220 MG ( 50 ) CAPSULE PO SCH (08:48)
[2019-11-06] MEDS: GLIPIZIDE 5MG TABLET PO SCH (08:49)
[2019-11-06] MEDS: DOCUSATE SODIUM 100MG CAPSULE PO SCH ×2 (08:49→17:00)
[2019-11-06] MEDS: ENOXAPARIN 40MG/0.4ML SYR SUBCUT SCH (08:49)
[2019-11-06 12:00] VITALS: BP 97/54
[2019-11-06 16:00] VITALS: BP 91/51
[2019-11-06 20:00] VITALS: BP 97/57
[2019-11-06] MEDS: HYDROCODONE/ACETAMINOPHEN 5/325MG TABLET PO PRN (21:52)
[2019-11-06] MEDS: LORAZEPAM 2MG/ML CPJ IV PRN (22:08)
[2019-11-07 00:05] VITALS: BP 92/58
[2019-11-07] MEDS: VANCOMYCIN 1 G PREMIX 200 ML IV SCH (00:19)
[2019-11-07] MEDS: SODIUM CHLORIDE 45ML SPRAY NS SCH ×4 (00:19→20:24)
[2019-11-07 04:00] VITALS: BP 99/55
[2019-11-07] MEDS: SODIUM CHLORIDE 0.9% INJ 3ML FLUSH IVF SCH ×3 (05:37→20:25)
[2019-11-07] MEDS: ACETAMINOPHEN 325MG TABLET PO PRN ×2 (05:46→21:11)
[2019-11-07] MEDS: BLOOD SUGAR DIAGNOSTIC STRIP TEST SCH ×4 (05:46→20:25)
[2019-11-07] MEDS: GLIPIZIDE 5MG TABLET PO SCH ×2 (07:40→08:31)
[2019-11-07] MEDS: DOCUSATE SODIUM 100MG CAPSULE PO SCH ×4 (08:31→17:16)
[2019-11-07] MEDS: ENOXAPARIN 40MG/0.4ML SYR SUBCUT SCH (08:31)
[2019-11-07] MEDS: INSULIN LISPRO 100 UNITS/ML SUBCUT SCH ×4 (08:34→20:42)
[2019-11-07] MEDS: ZINC SULFATE 220 MG ( 50 ) CAPSULE PO SCH ×2 (08:37→08:49)
[2019-11-07 12:00] VITALS: BP 103/58
[2019-11-07 16:00] VITALS: BP 105/54
[2019-11-07] MEDS: VANCOMYCIN 1250MG in DEXTROSE 5% WATER 250ML IV SCH (17:16)
[2019-11-07 20:00] VITALS: BP 104/64
[2019-11-07] MEDS: CEFEPIME 2,000 MG in DEXT 5% WATER 100 ML IV SCH (20:24)
[2019-11-08] VITALS: BP 100/60
[2019-11-08] MEDS: SODIUM CHLORIDE 45ML SPRAY NS SCH ×4 (01:45→18:02)
[2019-11-08 04:00] VITALS: BP 107/64
[2019-11-08] MEDS: SODIUM CHLORIDE 0.9% INJ 3ML FLUSH IVF SCH ×3 (04:58→21:10)
[2019-11-08] MEDS: GLIPIZIDE 5MG TABLET PO SCH ×2 (07:40→10:09)
[2019-11-08] MEDS: BLOOD SUGAR DIAGNOSTIC STRIP TEST SCH ×4 (07:40→20:12)
[2019-11-08 08:00] VITALS: BP 101/59
[2019-11-08] MEDS: INSULIN LISPRO 100 UNITS/ML SUBCUT SCH ×4 (08:10→20:30)
[2019-11-08] MEDS: DOCUSATE SODIUM 100MG CAPSULE PO SCH ×4 (09:00→17:47)
[2019-11-08] MEDS: ZINC SULFATE 220 MG ( 50 ) CAPSULE PO SCH ×2 (09:00→10:09)
[2019-11-08] MEDS: ENOXAPARIN 40MG/0.4ML SYR SUBCUT SCH (10:10)
[2019-11-08] MEDS: CEFEPIME 2,000 MG in DEXT 5% WATER 100 ML IV SCH (10:10)
[2019-11-08 12:00] VITALS: BP 100/56
[2019-11-08] MEDS: VANCOMYCIN 1250MG in DEXTROSE 5% WATER 250ML IV SCH (12:37)
[2019-11-08 16:00] VITALS: BP 99/58
[2019-11-08] MEDS ORDERED: CEFAZOLIN 2,000 MG in DEXT 5% WATER 100 ML IV SCH (16:00)
[2019-11-08] MEDS: CEFAZOLIN 2,000 MG in DEXT 5% WATER 100 ML IV SCH (18:17)
[2019-11-08 20:00] VITALS: BP 91/52
[2019-11-08] MEDS: ACETAMINOPHEN 325MG TABLET PO PRN (20:50)
[2019-11-09] VITALS (7 sets, daily range): BP systolic 91–111; BP diastolic 51–64
[2019-11-09] MEDS: SODIUM CHLORIDE 45ML SPRAY NS SCH ×3 (00:23→13:19)
[2019-11-09] MEDS: CEFAZOLIN 2,000 MG in DEXT 5% WATER 100 ML IV SCH ×3 (03:10→18:58)
[2019-11-09] MEDS: SODIUM CHLORIDE 0.9% INJ 3ML FLUSH IVF SCH ×3 (05:13→22:43)
[2019-11-09] MEDS: VANCOMYCIN 1250MG in DEXTROSE 5% WATER 250ML IV SCH (05:16)
[2019-11-09] MEDS: GLIPIZIDE 5MG TABLET PO SCH (05:59)
[2019-11-09] MEDS: BLOOD SUGAR DIAGNOSTIC STRIP TEST SCH ×4 (06:00→21:00)
[2019-11-09] MEDS: INSULIN LISPRO 100 UNITS/ML SUBCUT SCH ×4 (06:35→21:00)
[2019-11-09] MEDS: ENOXAPARIN 40MG/0.4ML SYR SUBCUT SCH (10:12)
[2019-11-09] MEDS: DOCUSATE SODIUM 100MG CAPSULE PO SCH ×2 (10:12→17:00)
[2019-11-09] MEDS: ZINC SULFATE 220 MG ( 50 ) CAPSULE PO SCH (10:12)
[2019-11-09 23:51] LABS: BASOPHILS % 0.4 % (0.0-2.0); EOSINOPHILS % 0.9 % (0.0-5.0); HEMOGLOBIN. 10.1 g/dL (14.0-18.0); LYMPHOCYTES % 25.5 % (20.0-50.0); MEAN CORPUSCULAR HEMOGLOBIN 30.7 pg (28.0-32.0); MEAN CORPUSCULAR VOLUME 91.3 fL (80.0-94.0); MEAN PLATELET VOLUME 7.5 fl (7.4-10.4); MONOCYTES % 9.4 % (2.0-8.0); NEUTROPHILS % 63.8 % (40.0-76.0); PLATELET 358 x1000/uL (130-400); RED BLOOD CELL COUNT 3.29 mill/uL (4.7-6.1); RED CELL DISTRIBUTION WIDTH 16.8 % (11.6-14.6)
[2019-11-09 23:56] LABS: CHLORIDE 97 mEq/L (98-107)
[2019-11-10] VITALS: BP 105/46
[2019-11-10 00:01] LABS: PHOSPHORUS 3.1 mg/dL (2.5-4.9)
[2019-11-10] MEDS: VANCOMYCIN 1250MG in DEXTROSE 5% WATER 250ML IV SCH ×2 (00:53→18:00)
[2019-11-10] MEDS: SODIUM CHLORIDE 45ML SPRAY NS SCH ×3 (01:21→13:00)
[2019-11-10] MEDS: CEFAZOLIN 2,000 MG in DEXT 5% WATER 100 ML IV SCH ×3 (03:25→18:16)
[2019-11-10] MEDS: SODIUM CHLORIDE 0.9% INJ 3ML FLUSH IVF SCH ×3 (05:39→21:16)
[2019-11-10] MEDS: BLOOD SUGAR DIAGNOSTIC STRIP TEST SCH ×4 (06:08→21:15)
[2019-11-10] MEDS: GLIPIZIDE 5MG TABLET PO SCH (06:12)
[2019-11-10] MEDS: INSULIN LISPRO 100 UNITS/ML SUBCUT SCH ×4 (07:15→21:00)
[2019-11-10 08:00] VITALS: BP_SYST 100; BP_SYST 111; BP_DIAS 64; BP_DIAS 75
[2019-11-10] MEDS: DOCUSATE SODIUM 100MG CAPSULE PO SCH ×2 (09:28→17:36)
[2019-11-10] MEDS: ZINC SULFATE 220 MG ( 50 ) CAPSULE PO SCH (09:28)
[2019-11-10] MEDS: ENOXAPARIN 40MG/0.4ML SYR SUBCUT SCH (09:28)
[2019-11-10 12:00] VITALS: BP 110/65
[2019-11-10 16:00] VITALS: BP 102/62
[2019-11-10] MEDS ORDERED: IPRATROPIUM/ALBUTEROL 0.5-3(2.5)MG/3ML NEB HHN PRN (16:15)
[2019-11-11] VITALS: BP 96/60
[2019-11-11] MEDS: CEFAZOLIN 2,000 MG in DEXT 5% WATER 100 ML IV SCH ×3 (01:10→21:34)
[2019-11-11 04:00] VITALS: BP 101/64
[2019-11-11] MEDS: GLIPIZIDE 5MG TABLET PO SCH (05:22)
[2019-11-11] MEDS: SODIUM CHLORIDE 0.9% INJ 3ML FLUSH IVF SCH ×3 (05:25→21:46)
[2019-11-11] MEDS: INSULIN LISPRO 100 UNITS/ML SUBCUT SCH ×4 (05:52→21:00)
[2019-11-11] MEDS: BLOOD SUGAR DIAGNOSTIC STRIP TEST SCH ×4 (05:52→21:00)
[2019-11-11 06:30] LABS: CHLORIDE 102 mEq/L (98-107)
[2019-11-11 08:00] VITALS: BP 100/66
[2019-11-11] MEDS: ZINC SULFATE 220 MG ( 50 ) CAPSULE PO SCH (08:31)
[2019-11-11] MEDS: DOCUSATE SODIUM 100MG CAPSULE PO SCH ×2 (08:31→17:00)
[2019-11-11] MEDS: ENOXAPARIN 40MG/0.4ML SYR SUBCUT SCH (08:31)
[2019-11-11 12:00] VITALS: BP 105/65
[2019-11-11] MEDS: VANCOMYCIN 1250MG in DEXTROSE 5% WATER 250ML IV SCH (12:09)
[2019-11-11 16:00] VITALS: BP 110/60
[2019-11-11 20:30] VITALS: BP 103/59
[2019-11-12] VITALS (7 sets, daily range): BP systolic 96–115; BP diastolic 59–78
[2019-11-12] MEDS: CEFAZOLIN 2,000 MG in DEXT 5% WATER 100 ML IV SCH ×3 (02:38→17:16)
[2019-11-12] MEDS: VANCOMYCIN 1250MG in DEXTROSE 5% WATER 250ML IV SCH (06:37)
[2019-11-12] MEDS: GLIPIZIDE 5MG TABLET PO SCH (06:41)
[2019-11-12] MEDS: SODIUM CHLORIDE 0.9% INJ 3ML FLUSH IVF SCH ×3 (06:41→21:05)
[2019-11-12] MEDS: BLOOD SUGAR DIAGNOSTIC STRIP TEST SCH ×4 (06:45→20:58)
[2019-11-12] MEDS: INSULIN LISPRO 100 UNITS/ML SUBCUT SCH ×4 (06:48→21:07)
[2019-11-12] MEDS: ZINC SULFATE 220 MG ( 50 ) CAPSULE PO SCH (09:56)
[2019-11-12] MEDS: DOCUSATE SODIUM 100MG CAPSULE PO SCH ×2 (09:56→17:09)
[2019-11-12] MEDS: ENOXAPARIN 40MG/0.4ML SYR SUBCUT SCH (09:57)
[2019-11-13] VITALS: BP 114/62
[2019-11-13] MEDS: VANCOMYCIN 1250MG in DEXTROSE 5% WATER 250ML IV SCH (00:35)
[2019-11-13] MEDS: CEFAZOLIN 2,000 MG in DEXT 5% WATER 100 ML IV SCH ×2 (02:18→10:00)
[2019-11-13 04:00] VITALS: BP 111/66
[2019-11-13] MEDS: SODIUM CHLORIDE 0.9% INJ 3ML FLUSH IVF SCH (06:00)
[2019-11-13] MEDS: BLOOD SUGAR DIAGNOSTIC STRIP TEST SCH (06:52)
[2019-11-13] MEDS: GLIPIZIDE 5MG TABLET PO SCH (07:01)
[2019-11-13] MEDS: INSULIN LISPRO 100 UNITS/ML SUBCUT SCH (07:03)
[2019-11-13 08:00] VITALS: BP 99/59
[2019-11-13] MEDS: DOCUSATE SODIUM 100MG CAPSULE PO SCH (09:00)
[2019-11-13 09:03] LABS: CHLORIDE 101 mEq/L (98-107)
[2019-11-13] MEDS: ZINC SULFATE 220 MG ( 50 ) CAPSULE PO SCH (10:54)
[2019-11-13] MEDS: ENOXAPARIN 40MG/0.4ML SYR SUBCUT SCH (10:54)
[2019-11-13 12:00] VITALS: BP 101/62
== END 2019-11-13 14:45 | DRG 871 ==
LOC: ER 15:02 → 7EST 18:20 → EDBEDREQ 18:23 → EDBEDREQSVC 18:23 → EDBEDREQTM 18:23 → ENRESERV 10-16 03:04 → 7EST 10-21 14:07 → 6WST 10-28 23:10 → 7WST 10-30 09:22 → 5WST 11-08 11:19
PROVIDERS: ADMIT Family Medicine; ATTEND Family Medicine
PROC: 05HY33Z Insertion of Infusion Device into Upper Vein, Percutaneous Approach (ICD-10-PCS; principal; 2019-10-19)
PROC: B54MZZA Ultrasonography of Right Upper Extremity Veins, Guidance (ICD-10-PCS; 2019-10-19)
DX: A41.89 Other specified sepsis (principal); J96.00 Acute respiratory failure, unspecified whether with hypoxia or hypercapnia; J12.89 Other viral pneumonia; U07.1 COVID-19; M86.9 Osteomyelitis, unspecified; G93.40 Encephalopathy, unspecified; E46 Unspecified protein-calorie malnutrition; A41.02 Sepsis due to Methicillin resistant Staphylococcus aureus; A41.59 Other Gram-negative sepsis; I25.10 Atherosclerotic heart disease of native coronary artery without angina pectoris; L97.509 Non-pressure chronic ulcer of other part of unspecified foot with unspecified severity; E11.621 Type 2 diabetes mellitus with foot ulcer; E11.65 Type 2 diabetes mellitus with hyperglycemia; E11.51 Type 2 diabetes mellitus with diabetic peripheral angiopathy without gangrene; G80.9 Cerebral palsy, unspecified; D72.810 Lymphocytopenia; B97.89 Other viral agents as the cause of diseases classified elsewhere; E11.610 Type 2 diabetes mellitus with diabetic neuropathic arthropathy; E66.01 Morbid (severe) obesity due to excess calories; I11.0 Hypertensive heart disease with heart failure; K59.00 Constipation, unspecified; E78.00 Pure hypercholesterolemia, unspecified; I50.9 Heart failure, unspecified; E11.69 Type 2 diabetes mellitus with other specified complication; I25.5 Ischemic cardiomyopathy; K76.9 Liver disease, unspecified; E78.5 Hyperlipidemia, unspecified; Z95.1 Presence of aortocoronary bypass graft; Z86.73 Personal history of transient ischemic attack (TIA), and cerebral infarction without residual deficits; Z95.810 Presence of automatic (implantable) cardiac defibrillator; Z68.28 Body mass index [BMI] 28.0-28.9, adult; Z90.49 Acquired absence of other specified parts of digestive tract; B96.4 Proteus (mirabilis) (morganii) as the cause of diseases classified elsewhere
CPT/HCPCS: 36415; 36600; 71045; 71250; 74176; 76937; 80048; 80053; 80061; 80202; 81003; 82010; 82248; 82375; 82728; 82805; 82962; 83036; 83605; 83615; 83735; 83880; 84100; 84145; 84484; 85025; 85379; 86140; 87077; 87186; 87635; 93005; 93306; 99291; C1725; J0456; J0690; J0692; J0696; J1650; J1815; J2060; J2543; J3370; J3475; J3490; J7030; J7060; U0003-CS

== ENCOUNTER 2020-01-14 12:39 | Inpatient (IN) | payer MEDICARE, MEDICAID ==
[~2020-01-14] VITALS: Ht 172.7 cm; Wt 108.1 kg
[2020-01-14] MEDS ORDERED: PIPERACILLIN/TAZ 3.375G PREMIX 50 ML IV ONE (13:15)
[2020-01-14] MEDS ORDERED: MORPHINE SULFATE 4 MG/ML CPJ (NOT FOR IM USE) IV ONE (13:15)
[2020-01-14] MEDS ORDERED: VANCOMYCIN 1 G PREMIX 200 ML IV ONE (13:15)
[2020-01-14 14:50] LABS: CHLORIDE 108 mEq/L (98-107)
[2020-01-14 14:55] LABS: BASOPHILS % 0.8 % (0.0-2.0); EOSINOPHILS % 2.4 % (0.0-5.0); HEMATOCRIT. 32.6 % (42.0-52.0); HEMOGLOBIN. 10.9 g/dL (14.0-18.0); LYMPHOCYTES % 15.1 % (20.0-50.0); MEAN CORPUSCULAR HEMOGLOBIN 31.4 pg (28.0-32.0); MEAN CORPUSCULAR VOLUME 93.9 fL (80.0-94.0); MEAN PLATELET VOLUME 8.6 fl (7.4-10.4); MONOCYTES % 7.6 % (2.0-8.0); NEUTROPHILS % 74.1 % (40.0-76.0); PLATELET 171 x1000/uL (130-400); RED BLOOD CELL COUNT 3.47 mill/uL (4.7-6.1); RED CELL DISTRIBUTION WIDTH 18.8 % (11.6-14.6)
[2020-01-14] MEDS ORDERED: FUROSEMIDE 40MG/4ML VIAL IVP ONE (17:45)
[2020-01-14] MEDS ORDERED: IOHEXOL-300 100 ML BOTTLE ONE (19:24)
[2020-01-14 21:00] VITALS: BP 130/80
[2020-01-14] MEDS ORDERED: GABA-529 PO (21:19)
[2020-01-14] MEDS ORDERED: GLIP5TAB12 PO (21:19)
[2020-01-14] MEDS ORDERED: HYDR-3280 PO (21:19)
[2020-01-14] MEDS ORDERED: DOCU-138 PO (21:19)
[2020-01-14] MEDS ORDERED: TOPUD PO (21:20)
[2020-01-14] MEDS ORDERED: ASPI-1497 PO (21:24)
[2020-01-14] MEDS ORDERED: MULT-1116 PO (21:24)
[2020-01-14] MEDS ORDERED: ASCO500C18 PO (21:24)
[2020-01-14] MEDS ORDERED: VIT500LI PO (21:24)
[2020-01-14 22:10] VITALS: BP 134/84
[2020-01-14] MEDS ORDERED: ONDANSETRON HCL 4MG/2ML INJ IV PRN (22:30)
[2020-01-14] MEDS ORDERED: ACETAMINOPHEN 325MG TABLET PO PRN (22:30)
[2020-01-14] MEDS ORDERED: DEXTROSE 50% WATER 50ML SYRINGE IV PRN (22:30)
[2020-01-15 00:34] VITALS: BP 137/90
[2020-01-15 04:38] VITALS: BP 129/74
[2020-01-15 05:21] LABS: CHLORIDE 108 mEq/L (98-107)
[2020-01-15] MEDS: BLOOD SUGAR DIAGNOSTIC STRIP TEST SCH ×4 (06:05→19:43)
[2020-01-15] MEDS: INSULIN LISPRO 100 UNITS/ML SUBCUT SCH ×4 (06:06→20:50)
[2020-01-15 07:17] LABS: BASOPHILS % 0.7 % (0.0-2.0); EOSINOPHILS % 1.7 % (0.0-5.0); HEMATOCRIT. 33.3 % (42.0-52.0); HEMOGLOBIN. 11.1 g/dL (14.0-18.0); LYMPHOCYTES % 12.6 % (20.0-50.0); MEAN CORPUSCULAR HEMOGLOBIN 31.3 pg (28.0-32.0); MEAN CORPUSCULAR VOLUME 93.8 fL (80.0-94.0); MEAN PLATELET VOLUME 7.7 fl (7.4-10.4); MONOCYTES % 9.3 % (2.0-8.0); NEUTROPHILS % 75.7 % (40.0-76.0); PLATELET 249 x1000/uL (130-400); RED BLOOD CELL COUNT 3.55 mill/uL (4.7-6.1); RED CELL DISTRIBUTION WIDTH 18.3 % (11.6-14.6)
[2020-01-15 08:00] VITALS: BP 161/65
[2020-01-15] MEDS: ASPIRIN 81MG TABLET PO SCH (08:55)
[2020-01-15] MEDS: ENOXAPARIN 30MG/0.3ML SYR SUBCUT SCH ×2 (08:56→19:43)
[2020-01-15 10:17] LABS: T4 FREE 3.39 ng/dL (0.76-1.46)
[2020-01-15 12:00] VITALS: BP 125/80
[2020-01-15] MEDS ORDERED: CLONIDINE 0.1MG TABLET PO PRN (14:30)
[2020-01-15 16:00] VITALS: BP 115/75
[2020-01-15] MEDS ORDERED: VANCOMYCIN 1,500 MG in DEXT 5% WATER 250 ML IV SCH (16:00)
[2020-01-15 16:54] LABS: CREATINE KINASE 36 IU/L (39-308); CREATINE KINASE MB FRACTION 1.3 ng/mL (0.5-3.6)
[2020-01-15] MEDS: VANCOMYCIN 1500MG in DEXTROSE 5% WATER 250ML IV SCH ×2 (18:13→22:46)
[2020-01-15] MEDS: HYDROCODONE/ACETAMINOPHEN 10/325MG TABLET PO PRN (18:14)
[2020-01-15 20:00] VITALS: BP 127/85
[2020-01-15 23:59] LABS: CREATINE KINASE MB FRACTION 1.4 ng/mL (0.5-3.6)
[2020-01-16] VITALS: BP 108/79
[2020-01-16 04:00] VITALS: BP 116/78
[2020-01-16 06:43] LABS: CREATINE KINASE MB FRACTION 1.3 ng/mL (0.5-3.6)
[2020-01-16] MEDS: BLOOD SUGAR DIAGNOSTIC STRIP TEST SCH ×4 (07:20→21:38)
[2020-01-16] MEDS: INSULIN LISPRO 100 UNITS/ML SUBCUT SCH ×4 (07:50→21:37)
[2020-01-16 08:00] VITALS: BP 123/85
[2020-01-16] MEDS: FUROSEMIDE 40MG/4ML VIAL IVP SCH (09:08)
[2020-01-16] MEDS: ENOXAPARIN 30MG/0.3ML SYR SUBCUT SCH ×2 (09:08→21:36)
[2020-01-16] MEDS: ASPIRIN 81MG TABLET PO SCH (09:10)
[2020-01-16] MEDS ORDERED: VANCOMYCIN 1500MG in DEXTROSE 5% WATER 250ML IV SCH (10:00)
[2020-01-16] MEDS: HYDROCODONE/ACETAMINOPHEN 10/325MG TABLET PO PRN ×2 (11:44→18:32)
[2020-01-16] MEDS: CARVEDILOL 3.125 MG TABLET PO SCH (11:45)
[2020-01-16 12:00] VITALS: BP 114/79
[2020-01-16] MEDS: VANCOMYCIN 1250MG in DEXTROSE 5% WATER 250ML IV SCH (13:02)
[2020-01-16 16:00] VITALS: BP 120/78
[2020-01-16 20:00] VITALS: BP 113/70
[2020-01-17] VITALS: BP 115/74
[2020-01-17 04:00] VITALS: BP 118/72
[2020-01-17 04:13] LABS: CHLORIDE 109 mEq/L (98-107)
[2020-01-17] MEDS: VANCOMYCIN 1250MG in DEXTROSE 5% WATER 250ML IV SCH (05:27)
[2020-01-17] MEDS: INSULIN LISPRO 100 UNITS/ML SUBCUT SCH ×4 (07:45→21:05)
[2020-01-17] MEDS: BLOOD SUGAR DIAGNOSTIC STRIP TEST SCH ×4 (07:45→21:02)
[2020-01-17 08:00] VITALS: BP 119/78
[2020-01-17] MEDS: FUROSEMIDE 40MG/4ML VIAL IVP SCH (09:00)
[2020-01-17] MEDS: ENOXAPARIN 30MG/0.3ML SYR SUBCUT SCH ×2 (09:00→21:04)
[2020-01-17] MEDS: ASPIRIN 81MG TABLET PO SCH (09:01)
[2020-01-17] MEDS: CARVEDILOL 3.125 MG TABLET PO SCH (09:01)
[2020-01-17 12:00] VITALS: BP 110/71
[2020-01-17 16:00] VITALS: BP 116/74
[2020-01-17] MEDS: LOSARTAN POTASSIUM 25 MG TABLET PO SCH (17:15)
[2020-01-17] MEDS: VANCOMYCIN 1 G PREMIX 200 ML IV SCH (19:38)
[2020-01-17 20:00] VITALS: BP 115/79
[2020-01-17] MEDS: LORAZEPAM 2MG/ML CPJ IV PRN (22:20)
[2020-01-18] VITALS: BP 123/78
[2020-01-18 04:00] VITALS: BP 109/55
[2020-01-18] MEDS: INSULIN LISPRO 100 UNITS/ML SUBCUT SCH ×4 (07:12→20:27)
[2020-01-18] MEDS: BLOOD SUGAR DIAGNOSTIC STRIP TEST SCH ×4 (07:12→20:27)
[2020-01-18 08:29] VITALS: BP 109/66
[2020-01-18] MEDS: VANCOMYCIN 1 G PREMIX 200 ML IV SCH ×2 (08:45→20:31)
[2020-01-18] MEDS: FUROSEMIDE 40MG/4ML VIAL IVP SCH ×2 (08:46→17:27)
[2020-01-18] MEDS: LOSARTAN POTASSIUM 25 MG TABLET PO SCH (08:46)
[2020-01-18] MEDS: ASPIRIN 81MG TABLET PO SCH (08:46)
[2020-01-18] MEDS: CARVEDILOL 3.125 MG TABLET PO SCH (08:46)
[2020-01-18] MEDS: ENOXAPARIN 30MG/0.3ML SYR SUBCUT SCH (08:47)
[2020-01-18] MEDS: HYDROCODONE/ACETAMINOPHEN 10/325MG TABLET PO PRN (09:53)
[2020-01-18] MEDS: LORAZEPAM 2MG/ML CPJ IV PRN (11:00)
[2020-01-18 11:50] VITALS: BP 114/74
[2020-01-18 15:58] VITALS: BP 108/69
[2020-01-18 20:00] VITALS: BP 100/55
[2020-01-19] VITALS: BP 90/55
[2020-01-19 04:00] VITALS: BP 94/50
[2020-01-19] MEDS: INSULIN LISPRO 100 UNITS/ML SUBCUT SCH ×4 (05:51→20:40)
[2020-01-19] MEDS: BLOOD SUGAR DIAGNOSTIC STRIP TEST SCH ×4 (05:51→20:40)
[2020-01-19 06:35] LABS: CHLORIDE 104 mEq/L (98-107)
[2020-01-19] MEDS: VANCOMYCIN 1 G PREMIX 200 ML IV SCH ×2 (07:42→09:12)
[2020-01-19] MEDS ORDERED: MIDAZOLAM HCL 2 MG/2 ML VIAL ONE (08:07)
[2020-01-19] MEDS ORDERED: IODIXANOL 320MG/ML 100 ML BOTTLE IV ONE (08:08)
[2020-01-19] MEDS ORDERED: FENTANYL CITRATE/PF 50MCG/ML 2ML VIAL ONE (08:08)
[2020-01-19] MEDS ORDERED: LIDOCAINE HCL 1% 20ML VIAL (Pyxis) INJ ONE (08:08)
[2020-01-19 08:45] VITALS: BP 104/69
[2020-01-19] MEDS: CARVEDILOL 3.125 MG TABLET PO SCH (08:52)
[2020-01-19] MEDS: LOSARTAN POTASSIUM 25 MG TABLET PO SCH (08:52)
[2020-01-19] MEDS: ASPIRIN 81MG TABLET PO SCH (08:52)
[2020-01-19] MEDS: FUROSEMIDE 40MG/4ML VIAL IVP SCH (09:12)
[2020-01-19] MEDS ORDERED: POTASSIUM CHLORIDE 20MEQ TABLET SR PO NR ×2 (11:15→16:30)
[2020-01-19 12:00] VITALS: BP 110/66
[2020-01-19] MEDS: SODIUM CHLORIDE 0.9% 1,000 ML IV SCH (12:32)
[2020-01-19 15:34] LABS: BASOPHILS % 0.5 % (0.0-2.0); HEMATOCRIT. 33.8 % (42.0-52.0); HEMOGLOBIN. 11.2 g/dL (14.0-18.0); LYMPHOCYTES % 12.3 % (20.0-50.0); MEAN CORPUSCULAR HEMOGLOBIN 30.8 pg (28.0-32.0); MEAN CORPUSCULAR VOLUME 93.1 fL (80.0-94.0); MEAN PLATELET VOLUME 7.6 fl (7.4-10.4); MONOCYTES % 6.9 % (2.0-8.0); NEUTROPHILS % 79.3 % (40.0-76.0); PLATELET 243 x1000/uL (130-400); RED BLOOD CELL COUNT 3.63 mill/uL (4.7-6.1)
[2020-01-19 15:37] LABS: CHLORIDE 106 mEq/L (98-107)
[2020-01-19 16:00] VITALS: BP 105/75
[2020-01-19] MEDS: CEFAZOLIN 2,000 MG in DEXT 5% WATER 100 ML IV SCH ×2 (17:57→21:17)
[2020-01-19] MEDS ORDERED: MAGNESIUM 2 G PREMIX 50 ML IV SCH (18:00)
[2020-01-19] MEDS: DAPTOMYCIN 750 MG in SODIUM CHLORIDE 0.9% 50 ML IV SCH (18:38)
[2020-01-19] MEDS: LORAZEPAM 2MG/ML CPJ IV PRN (20:00)
[2020-01-19 21:01] VITALS: BP 98/65
[2020-01-20] VITALS: BP 105/71
[2020-01-20] MEDS ORDERED: VANCOMYCIN 1250MG in DEXTROSE 5% WATER 250ML IV SCH ×2
[2020-01-20 04:00] VITALS: BP 96/73
[2020-01-20] MEDS: SODIUM CHLORIDE 0.9% 1,000 ML IV SCH ×2 (04:55→21:05)
[2020-01-20] MEDS: CEFAZOLIN 2,000 MG in DEXT 5% WATER 100 ML IV SCH ×3 (05:13→21:04)
[2020-01-20] MEDS: INSULIN LISPRO 100 UNITS/ML SUBCUT SCH ×4 (06:22→21:06)
[2020-01-20] MEDS: BLOOD SUGAR DIAGNOSTIC STRIP TEST SCH ×4 (06:22→21:03)
[2020-01-20 08:07] VITALS: BP 122/79
[2020-01-20] MEDS: FUROSEMIDE 40MG/4ML VIAL IVP SCH (09:02)
[2020-01-20] MEDS: CARVEDILOL 3.125 MG TABLET PO SCH (09:03)
[2020-01-20] MEDS: ASPIRIN 81MG TABLET PO SCH (09:04)
[2020-01-20] MEDS: LOSARTAN POTASSIUM 25 MG TABLET PO SCH (09:04)
[2020-01-20 12:00] VITALS: BP 109/72
[2020-01-20 16:00] VITALS: BP 105/65
[2020-01-20] MEDS: DAPTOMYCIN 750 MG in SODIUM CHLORIDE 0.9% 50 ML IV SCH (18:20)
[2020-01-20 19:09] LABS: CHLORIDE 105 mEq/L (98-107)
[2020-01-20 20:00] VITALS: BP 95/60
[2020-01-20] MEDS ORDERED: POTASSIUM CHLORIDE 20MEQ/PACKET PO NR (21:15)
[2020-01-21] VITALS (7 sets, daily range): BP systolic 95–116; BP diastolic 66–78
[2020-01-21] MEDS: CEFAZOLIN 2,000 MG in DEXT 5% WATER 100 ML IV SCH ×3 (05:32→22:05)
[2020-01-21] MEDS: BLOOD SUGAR DIAGNOSTIC STRIP TEST SCH ×4 (05:40→20:11)
[2020-01-21] MEDS: INSULIN LISPRO 100 UNITS/ML SUBCUT SCH ×4 (08:10→22:06)
[2020-01-21] MEDS: CARVEDILOL 3.125 MG TABLET PO SCH (09:00)
[2020-01-21] MEDS: ASPIRIN 81MG TABLET PO SCH (09:00)
[2020-01-21] MEDS: LOSARTAN POTASSIUM 25 MG TABLET PO SCH (09:00)
[2020-01-21] MEDS: FUROSEMIDE 40MG/4ML VIAL IVP SCH (09:47)
[2020-01-21] MEDS: LORAZEPAM 2MG/ML CPJ IV PRN (11:56)
[2020-01-21] MEDS: SODIUM CHLORIDE 0.9% 1,000 ML IV SCH (14:04)
[2020-01-21] MEDS: DAPTOMYCIN 750 MG in SODIUM CHLORIDE 0.9% 50 ML IV SCH (16:14)
[2020-01-21] MEDS: ENOXAPARIN 30MG/0.3ML SYR SUBCUT SCH (18:52)
[2020-01-22 04:00] VITALS: BP 115/76
[2020-01-22] MEDS: CEFAZOLIN 2,000 MG in DEXT 5% WATER 100 ML IV SCH ×2 (05:35→13:13)
[2020-01-22] MEDS: BLOOD SUGAR DIAGNOSTIC STRIP TEST SCH ×3 (07:40→17:15)
[2020-01-22 08:00] VITALS: BP 121/81
[2020-01-22] MEDS: INSULIN LISPRO 100 UNITS/ML SUBCUT SCH ×3 (08:10→18:05)
[2020-01-22] MEDS: ENOXAPARIN 30MG/0.3ML SYR SUBCUT SCH (08:38)
[2020-01-22] MEDS: ASPIRIN 81MG TABLET PO SCH (08:38)
[2020-01-22] MEDS: FUROSEMIDE 40MG/4ML VIAL IVP SCH (08:38)
[2020-01-22] MEDS: LOSARTAN POTASSIUM 25 MG TABLET PO SCH (08:38)
[2020-01-22] MEDS: CARVEDILOL 3.125 MG TABLET PO SCH (08:39)
[2020-01-22] MEDS ORDERED: ASCORBIC ACID 500 MG TABLET PO SCH (09:00)
[2020-01-22] MEDS ORDERED: ZINC SULFATE 220 MG ( 50 ) CAPSULE PO SCH (09:00)
[2020-01-22] MEDS: SODIUM CHLORIDE 0.9% 1,000 ML IV SCH (09:03)
[2020-01-22 12:00] VITALS: BP 118/79
[2020-01-22] MEDS ORDERED: LORAZEPAM 2MG/ML CPJ IV PRN (15:00)
[2020-01-22 16:00] VITALS: BP 103/72
[2020-01-22] MEDS: DAPTOMYCIN 750 MG in SODIUM CHLORIDE 0.9% 50 ML IV SCH (16:18)
[2020-01-22 17:48] VITALS: BP 111/71
[2020-01-22 20:34] VITALS: BP 112/78
[2020-01-22 21:18] LABS: CHLORIDE 106 mEq/L (98-107)
== END 2020-01-22 22:20 | DRG 314 ==
LOC: ER 12:39 → 6WST 18:49 → EDBEDREQ 18:53 → EDBEDREQTM 18:59 → ENRESERV 20:23 → 7WST 01-21 00:08
PROVIDERS: ADMIT Family Medicine; ATTEND Family Medicine
PROC: 05H533Z Insertion of Infusion Device into Right Subclavian Vein, Percutaneous Approach (ICD-10-PCS; 2020-01-18)
PROC: B546ZZA Ultrasonography of Right Subclavian Vein, Guidance (ICD-10-PCS; 2020-01-18)
PROC: B41G1ZZ Fluoroscopy of Left Lower Extremity Arteries using Low Osmolar Contrast (ICD-10-PCS; principal; 2020-01-19)
PROC: B41F1ZZ Fluoroscopy of Right Lower Extremity Arteries using Low Osmolar Contrast (ICD-10-PCS; 2020-01-19)
DX: T82.7XXA Infection and inflammatory reaction due to other cardiac and vascular devices, implants and grafts, initial encounter (principal); A41.02 Sepsis due to Methicillin resistant Staphylococcus aureus; I50.43 Acute on chronic combined systolic (congestive) and diastolic (congestive) heart failure; J96.00 Acute respiratory failure, unspecified whether with hypoxia or hypercapnia; U07.1 COVID-19; J98.11 Atelectasis; M00.9 Pyogenic arthritis, unspecified; M86.672 Other chronic osteomyelitis, left ankle and foot; E44.0 Moderate protein-calorie malnutrition; I42.9 Cardiomyopathy, unspecified; E66.01 Morbid (severe) obesity due to excess calories; I27.20 Pulmonary hypertension, unspecified; I25.10 Atherosclerotic heart disease of native coronary artery without angina pectoris; E11.610 Type 2 diabetes mellitus with diabetic neuropathic arthropathy; K59.00 Constipation, unspecified; E11.40 Type 2 diabetes mellitus with diabetic neuropathy, unspecified; E11.621 Type 2 diabetes mellitus with foot ulcer; I11.0 Hypertensive heart disease with heart failure; I07.1 Rheumatic tricuspid insufficiency; E11.51 Type 2 diabetes mellitus with diabetic peripheral angiopathy without gangrene; D64.9 Anemia, unspecified; E11.628 Type 2 diabetes mellitus with other skin complications; E78.00 Pure hypercholesterolemia, unspecified; E78.5 Hyperlipidemia, unspecified; Y83.8 Other surgical procedures as the cause of abnormal reaction of the patient, or of later complication, without mention of misadventure at the time of the procedure; I25.5 Ischemic cardiomyopathy; I70.8 Atherosclerosis of other arteries; L97.529 Non-pressure chronic ulcer of other part of left foot with unspecified severity; E80.6 Other disorders of bilirubin metabolism; Z71.3 Dietary counseling and surveillance; Z95.1 Presence of aortocoronary bypass graft; Z95.810 Presence of automatic (implantable) cardiac defibrillator; Z86.73 Personal history of transient ischemic attack (TIA), and cerebral infarction without residual deficits; Z79.4 Long term (current) use of insulin; Z74.01 Bed confinement status; Z82.49 Family history of ischemic heart disease and other diseases of the circulatory system; Z68.36 Body mass index [BMI] 36.0-36.9, adult; Y92.89 Other specified places as the place of occurrence of the external cause
CPT/HCPCS: 36246; 36415; 71045; 73701; 75710; 76937; 80048; 80053; 80061; 80202; 82550; 82553; 82962; 83036; 83605; 83735; 83880; 84132; 84439; 84443; 84484; 85025; 85379; 85651; 86140; 87077; 93005; 93306; 99285; C1725; C1760; C1769; C1893; J0690; J0878; J1644; J1650; J1815; J1940; J2060; J2250; J2270; J2543; J3010; J3370; J3475; J3490; J7030; J7060; Q9967; U0003-CS